=== PATIENT | male | born 1955 | race Caucasian/White ===

== ENCOUNTER 2020-03-19 10:01 | Outpatient (REF) | payer BC, SELFPAY ==
[2020-03-19 10:44] LABS: Mean Corpuscular HGB Conc 33.3 g/dl (31.0-36.0); Mean Corpuscular Hemoglobin 28.2 pg (27.0-33.0); Mean Corpuscular Volume 84.7 fL (80-98); Mean Platelet Volume 9.9 fL (9.4-12.4); Platelet Count 312 X10*3/uL (160-400); Red Blood Count 5.67 X10*6/uL (4.60-5.80); Red Cell Distribution Width 12.5 % (11.0-16.0); White Blood Count 5.4 X10*3/uL (4.8-10.8)
[2020-03-19 11:22] LABS: Alanine Aminotransferase 43 U/L (0-40); Albumin Level 4.1 g/dL (3.5-5.0); Alkaline Phosphatase 106 U/L (39-117); Anion Gap 11 (12-20); Aspartate Amino Transferase 36 U/L (5-37); Bilirubin Direct 0.6 mg/dL (0.0-0.5); Bilirubin Total 1.6 mg/dL (0.0-1.0); Blood Urea Nitrogen 16 mg/dL (9-16); Calcium 8.8 mg/dL (8.4-10.2); Carbon Dioxide 30 mmol/L (22-29); Chloride 103 mmol/L (96-108); Cholesterol 120 mg/dL; Estimated Glomerular Filt Rate > 60; Glucose Fasting 97 mg/dL (60-99); HDL Cholesterol 36 mg/dL; LDL Cholesterol Calculated 75 mg/dl; Potassium 4.9 mmol/l (3.3-5.1); Sodium 139 mmol/L (135-145); Total Protein 6.9 g/dL (6.5-8.0); Triglycerides 46 mg/dL
[2020-03-19 11:45] LABS: Prostate Specific Antigen 0.88 ng/mL (<0.05-4.0)
== END 2020-03-19 10:02 | disposition home or self-care (01) ==
LOC: HO.LAB 10:01
DX: I48.91 Unspecified atrial fibrillation (principal); E78.5 Hyperlipidemia, unspecified; N40.0 Benign prostatic hyperplasia without lower urinary tract symptoms
CPT/HCPCS: 36415; 80053; 80061; 80076; 82248; 84153; 85027

== ENCOUNTER 2020-06-21 10:15 | Outpatient (REF) | payer BC, SELFPAY ==
--- NOTE | ~2020-06-21 | US_ITS ---
EXAMINATION: US ABDOMEN COMPLETE CLINICAL INFORMATION: Abnormal results of liver function studies. COMPARISON: None TECHNIQUE: Real-time imaging of the abdominal viscera. FINDINGS: PANCREAS: The pancreas is normal in size and contour and echogenicity. There is no pancreatic ductal distention or retroperitoneal effusion. ABDOMINAL AORTA: The proximal, mid, and distal segments are normal in caliber. INFERIOR VENA CAVA: Visualized portions are normal. LIVER: Normal. The liver is normal in size. The liver contour is normal. Parenchymal echogenicity is normal. No focal hepatic lesion. There is no intrahepatic biliary duct dilatation seen. GALLBLADDER: Normal. The gallbladder is physiologically distended without evidence of stones, sludge, polyps, wall thickening or pericholecystic fluid. COMMON BILE DUCT: Normal in caliber measuring 0.3 cm in diameter. RIGHT KIDNEY: No hydronephrosis or renal calculi. The kidney measures 11.4 cm in maximum dimension. There is an upper pole cyst measuring 1.9 x 1.5 x 1.9 cm. LEFT KIDNEY: No hydronephrosis or renal calculi. The kidney measures 13.0 cm in maximum dimension. There is an interpolar cyst exophytic measuring 2.6 x 1.9 x 2.1 cm and smaller interpolar cyst 1.4 x 1.2 x 1.3 cm. SPLEEN: Normal. The spleen measures 8.7 cm in maximum dimension. FREE FLUID: None. US/US abdomen complete IMPRESSION: 1. Liver normal in size and echogenicity. 2. No cholelithiasis or ductal dilatation. Unremarkable pancreas. 3. Bilateral renal cysts. No hydronephrosis or calculi.
== END 2020-06-21 10:16 | disposition home or self-care (01) ==
LOC: HO.US 10:15
PROVIDERS: Visit Provider Internal Medicine
DX: R94.5 Abnormal results of liver function studies (principal)
CPT/HCPCS: 76700

== ENCOUNTER 2020-08-26 10:55 | Outpatient (REF) | payer BC, SELFPAY ==
[2020-08-26 12:38] LABS: Alanine Aminotransferase 41 U/L (0-40); Albumin Level 4.2 g/dL (3.5-5.0); Alkaline Phosphatase 98 U/L (39-117); Anion Gap 13 (12-20); Aspartate Amino Transferase 32 U/L (5-37); Bilirubin Total 1.5 mg/dL (0.0-1.0); Blood Urea Nitrogen 16 mg/dL (9-16); Calcium 9.5 mg/dL (8.4-10.2); Carbon Dioxide 26 mmol/L (22-29); Chloride 105 mmol/L (96-108); Estimated Glomerular Filt Rate > 60; Glucose Random 90 mg/dL (60-115); Potassium 4.7 mmol/L (3.3-5.1); Sodium 139 mmol/L (135-145); Total Protein 7.4 g/dL (6.5-8.0)
[2020-08-29 08:13] LABS: HBsAGNum1 0.25 S/CO (0.00-0.99); Hepatitis B Surface Antigen Negative (Negative); ~HepC Num1 0.18 S/CO (0.00-0.79); ~Hepatitis C Antibody Nonreactive (Nonreactive)
[2020-08-29 08:48] LABS: HBc Num1 0.09 S/CO (0.00-0.79); Hepatitis B Core Antibody Nonreactive (Nonreactive); ~Hepatitis B Surface Antibody NONREACTIVE (Nonreactive)
== END 2020-08-26 10:56 | disposition home or self-care (01) ==
LOC: HO.LAB 10:55
PROVIDERS: PCP Internal Medicine; Visit Provider Internal Medicine
DX: R94.5 Abnormal results of liver function studies (principal)
CPT/HCPCS: 36415; 80053; 86704; 86706; 86803; 87340

== ENCOUNTER 2021-04-21 09:55 | Outpatient (REF) | payer MEDICARE, OTHER, SELFPAY ==
--- NOTE | ~2021-04-21 | FL_ITS ---
EXAMINATION: FL UPPER GI AIR-CONTRAST STUDY AND BARIUM SWALLOW CLINICAL INFORMATION: Dysphagia. COMPARISON: None TECHNIQUE: Routine upper GI air-contrast study was performed with thick barium and effervescent granules in upright and lying position. Also thick barium and a barium-coated tablet was administered in upright view as part of the barium swallow. FINDINGS: Following oral administration of thick barium, barium-coated turkey and barium-coated tablet, there is normal propagation of bolus from the oral cavity through the pharynx, esophagus into stomach without any evidence of narrowing, stricture or obstruction. There is no extrinsic compression. On oral administration of barium tablet, there is spontaneous flow of the tablet through the esophagus into stomach with no obstruction. Following oral administration of effervescent granules and thick barium, the course, caliber and peristalsis of the stomach and the duodenum are normal. The mucosal pattern of the stomach and the duodenum is normal. No gastric ulceration or erosion seen. There is no hiatal hernia or gastroesophageal reflux. FL/FL upper GI w air w Ba Swallow IMPRESSION: Unremarkable upper GI air-contrast study and barium swallow exam.
[2021-04-21 10:52] LABS: MANUAL DIFF FLAG NO
[2021-04-21 11:01] LABS: Basophils Percent Auto 0.6 % (0-2); Eosinophils Absolute Auto 0.2 X10*3/uL (0.0-0.4); Eosinophils Percent Auto 2.5 % (0-4); Hemoglobin 15.8 g/dl (14.0-18.0); Imm Gran Abs Auto 0.01 X10*3/uL (0.00-0.03); Imm Gran Pct Auto 0.2 % (0.0-0.4); Lymphocytes Absolute Auto 1.4 X10*3/uL (1.2-4.9); Lymphocytes Percent Auto 21.3 % (20-40); Mean Corpuscular HGB Conc 32.9 g/dl (31.0-36.0); Mean Corpuscular Hemoglobin 27.8 pg (27.0-33.0); Mean Corpuscular Volume 84.5 fL (80.0-98.0); Mean Platelet Volume 9.5 fL (9.4-12.4); Monocytes Absolute Auto 0.8 X10*3/uL (0.1-1.2); Monocytes Percent Auto 11.8 % (2-11); Neutrophils Percent Auto 63.6 % (45-73); Platelet Count 308 X10*3/uL (160-400); Red Blood Count 5.68 X10*6/uL (4.60-5.80); Red Cell Distribution Width 12.7 % (11.0-16.0); White Blood Count 6.4 X10*3/uL (4.8-10.8)
[2021-04-21 11:33] LABS: Alanine Aminotransferase 30 U/L (0-40); Albumin Level 4.2 g/dL (3.5-5.0); Alkaline Phosphatase 103 U/L (39-117); Anion Gap 10 (12-20); Aspartate Amino Transferase 27 U/L (5-37); Blood Urea Nitrogen 12 mg/dL (9-16); Calcium 9.6 mg/dL (8.4-10.2); Carbon Dioxide 29 mmol/L (22-29); Chloride 105 mmol/L (96-108); Cholesterol 144 mg/dL; Estimated Glomerular Filt Rate > 60; Glucose Random 106 mg/dL (60-115); HDL Cholesterol 46 mg/dL; LDL Cholesterol Calculated 87 mg/dl; Potassium 4.4 mmol/L (3.3-5.1); Sodium 140 mmol/L (135-145); Total Protein 7.4 g/dL (6.5-8.0); Triglycerides 56 mg/dL
[2021-04-21 11:41] LABS: B Type Natriuretic Peptide 24 pg/mL (<100)
[2021-04-21 11:58] LABS: Free T4 (Free Thyroxine) 1.06 ng/dL (0.71-1.85); Prostate Specific Antigen Scr 1.44 ng/mL (<0.05-4.0); Thyroid Stimulating Hormone 2.34 uIU/mL (0.32-4.0)
[2021-04-21 12:05] LABS: Folate 14.2 ng/mL (> or = 4.0); Vitamin B12 767 pg/mL (200-900)
== END 2021-04-21 09:56 | disposition home or self-care (01) ==
LOC: HO.XRAY 09:55
PROVIDERS: PCP Internal Medicine; Visit Provider Internal Medicine
DX: Z12.5 Encounter for screening for malignant neoplasm of prostate (principal); R13.10 Dysphagia, unspecified; E78.00 Pure hypercholesterolemia, unspecified
CPT/HCPCS: 36415; 74246; 80053; 80061; 82607; 82746; 83880; 84153; 84439; 84443; 85025

== ENCOUNTER 2021-09-14 09:01 | Outpatient (REF) | payer MEDICARE, OTHER, SELFPAY ==
--- NOTE | ~2021-09-14 | CT_ITS ---
EXAMINATION: CT HEAD WITHOUT CONTRAST CLINICAL INFORMATION: 66-year-old with other signs and symptoms involving cognitive function. COMPARISON: None TECHNIQUE: Contiguous axial imaging was performed from the skull base to vertex without intravenous administration of contrast. This CT examination was performed using dose optimization techniques as appropriate, variously including the following: *Automated exposure control *Adjustment of mA and/or kV according to patient size (this includes techniques or standardized protocols for targeted exams where dose is matched to indication/reason for exam; i.e. extremities or head) *Use of iterative reconstruction technique DLP: 815 mGy-cm FINDINGS: BRAIN VOLUME: Within normal range within the limitations of a qualitative assessment. STRUCTURAL: No malformations. BRAIN AND MENINGES: Hyman-white matter differentiation is well maintained. The brain is normal in morphology and attenuation. There is no evidence for hemorrhage, extra-axial fluid collection, space-occupying process, mass effect, acute infarct or space-occupying process. VENTRICLES AND SUBARACHNOID SPACES: The ventricular system and subarachnoid spaces are within normal limits without hydrocephalus. ORBITAL STRUCTURES: Grossly unremarkable within the limitations of the study. OSSEOUS STRUCTURES, SINUSES/MASTOIDS, EXTRACRANIAL SOFT TISSUES: The bony structures are intact. Mastoids and middle ear cavities are unopacified. Large retention cysts are noted in the right maxillary sinus, partially opacifying the sinus. Otherwise the remainder of the visualized paranasal sinuses is clear. Bilateral carotid calcifications are noted. Visualized extracranial soft tissue structures appear grossly unremarkable within the limitations of the study. CT/CT head/brain wo con IMPRESSION: 1. Normal noncontrast CT of the brain. 2. Large retention cysts in the right maxillary sinus.
== END 2021-09-14 09:02 | disposition home or self-care (01) ==
LOC: HO.CT 09:01
PROVIDERS: PCP Internal Medicine; Visit Provider Internal Medicine
DX: R41.89 Other symptoms and signs involving cognitive functions and awareness (principal)
CPT/HCPCS: 70450

== ENCOUNTER 2021-10-05 15:07 | Outpatient (REF) | payer MEDICARE, OTHER, SELFPAY ==
--- NOTE | ~2021-10-05 | US_ITS ---
EXAMINATION: US EXTRACRANIAL CAROTID DUPLEX, BILATERAL CLINICAL INFORMATION: Transient ischemic attack COMPARISON: 12/23/2018 TECHNIQUE: Real-time ultrasound and Doppler techniques (integrating B-mode 2-D vascular images, Doppler spectral analysis and color-flow Doppler imaging) were utilized to interrogate the extracranial carotid arteries, the vertebral arteries and proximal subclavian arteries bilaterally. The degree of stenosis is determined by criteria similar to NASCET. FINDINGS: Right Side: 1. There is minimal atherosclerotic plaque seen in the bifurcation/proximal ICA region. 2. The common carotid artery PSV proximally is 95.1 cm/s and distally 90.1 cm/s. 3. The proximal internal carotid artery velocities are 94.4 cm/s systolic and 21.1 cm/s diastolic. 4. The proximal external carotid artery PSV is 90.7 cm/s. 5. The vertebral artery shows antegrade flow. 6. The subclavian artery waveforms are normal. Left Side: 1. There is none atherosclerotic plaque seen in the bifurcation/proximal ICA region. 2. The common carotid artery PSV proximally is 107 cm/s and distally 82.0 cm/s. 3. The proximal internal carotid artery velocities are 83.1 cm/s systolic and 25.1 cm/s diastolic. 4. The proximal external carotid artery PSV is 104 cm/s. 5. The vertebral artery shows antegrade flow. 6. The subclavian artery waveforms are normal. US/US carotid duplex BI IMPRESSION: 1. RIGHT: Minimal, non-hemodynamically significant stenosis of the proximal right internal carotid artery corresponding to a 0-49% stenosis by velocity criteria. 2. LEFT: Normal left internal carotid artery without atherosclerotic plaque or hemodynamically significant stenosis. 3. There is no change in the category severity of disease when compared to the previous study dated 12/23/2018.
== END 2021-10-05 15:08 | disposition home or self-care (01) ==
LOC: HO.US 15:07
PROVIDERS: Visit Provider Internal Medicine
DX: G45.9 Transient cerebral ischemic attack, unspecified (principal)
CPT/HCPCS: 93880

== ENCOUNTER → 2021-11-30 12:55 | Outpatient (BNVA) | payer MEDICARE, OTHER, SELFPAY | PROVIDERS: PCP Internal Medicine; Referring Provider Internal Medicine; Visit Provider Internal Medicine Cardiovascular Disease | DX: I48.0 Paroxysmal atrial fibrillation (principal) | CPT/HCPCS: 93005; 99202 ==

== ENCOUNTER → 2021-12-04 14:57 | Outpatient (REF) | payer MEDICARE, OTHER, SELFPAY ==
--- NOTE | 2021-12-04 15:02 | CA_ITS ---
Transthoracic Echocardiogram Patient (Last, First, Middle): Tommy Cooper, Gender: Male Date of : 1955 Age: 66 Procedure Date: 12/04/2021 Procedure Type: Transthoracic Echocardiogram Location: OP Height: 180.34 cm Weight: 99.79 kg BSA: 2.20 m2 Heart Rate: 76 bpm BP: 120 / 74 mmHg Enrollment Specialist: KOFFI Referring MD: Faisal Brown MD Director Of Income Tax: Faisal Brown MD Symptoms: I48.0 - Paroxysmal atrial fibrillation Study Quality: Adequate with contrast ECG Rhythm: Sinus Conclusions: - 1. Normal LV systolic function with impaired relaxation filling pattern 2. Normal cardiac valvular Doppler 3. No gross pericardial effusion Findings Procedure Information Contrast agent, definity, is being given per protocol without apparent complications. Left Ventricle Normal left ventricular size, thickness, and systolic function. The visually estimated ejection fraction is between 65-70%. Spectral Doppler is indicative of an impaired relaxation filling pattern. E/E prime ratio is between 8 and 15 consistent with indeterminate filling pressures. Right Ventricle Normal right ventricular cavity size and systolic function. Atria The left atrium is normal in size. Interatrial shunt cannot be excluded. The right atrium is normal in size. Aortic Valve Normal aortic valve structure and function. There is no aortic valve stenosis. There is no aortic valve regurgitation. Mitral Valve Normal mitral valve structure and function. There is trace mitral valve regurgitation. There is no mitral valve stenosis. Pulmonic Valve The pulmonic valve was not well visualized. Tricuspid Valve Likely normal tricuspid valve structure and function. Tricuspid regurgitation envelope is inadequate for calculation of right ventricular systolic pressure. Great Vessels All visible segments of the aorta are normal in size. The pulmonary artery was not well visualized. Venous The inferior vena cava is normal in size and collapses greater than 50% with inspiration. Pericardium/Pleural There is no evidence of pericardial effusion. Prior Study Comparison No significant change compared to prior study dated: 11/01/2017. Measurements 2D Linear Measurements IVSd: 0.93 0.6-0.9/0.6-1.0 cm LVIDd: 5.26 3.9-5.3/4.2-5.9 cm LVIDd Index: 2.39 2.4-3.2/2.2-3.1 cm/m2 LVIDs: 3.87 2.0-3.6 cm LVPWd: 0.58 0.7-1.1 cm LA Diam: 4.00 2.7-3.8/3.0-4.0 cm LAIDs Index: 1.82 1.5-2.3 cm/m2 LV Mass: 170.06 67-162/88-224 g LV Mass Index: 77.30 43-95/49-115 g/m2 LVOT Diam: 2.20 3.0+(-)1.3 cm 2D Systolic Function EF 4C: 65.80 >55% EF 2C: 74.60 >55% EF BiP: 69.70 >55% Mitral Valve MV Pk E: 0.69 MV PK A: 0.64 MV Decel Time: 221.00 E/A: 1.10 E'Lateral: 11.10 E'Medial: 7.72 E/E' Med: 9.00 E/E' Lat: 6.30 PHT: 65.00 MVA PHT: 3.38 Decel [place]: 3.14 Aortic Valve AoV Pk Andrew: 1.48 AoV Mn Andrew: 1.05 AoV VTI: 0.27 AoV Pk Grad: 9.00 Aov Mn Grad: 5.00 BINTA Cont.VTI: 2.94 LVOT LVOT Pk Andrew: 1.01 LVOT Mn Andrew: 0.76 LVOT VTI: 0.21 LVOT Pk Grad: 4.00 LVOT Mn Grad: 3.00 LVOT Diam: 2.20 LVOT Area: 3.80 Diastolic Function MV Pk E: 0.69 MV Pk A: 0.64 E/A: 1.10 E'Medial: 7.72 E/E' Med: 9.00 E' Laterial: 11.10 E/E' Lat: 6.30 Right Ventricle TAPSE (mm): 16.60 TVS' Andrew: 11.10 Great Vessels Aorta Sinus of Valsalva: 3.30 2.0-3.5 cm Ao Asc: 3.70 2.1-3.4 cm Pulmonary Valve PV Pk Andrew: 1.34 Peak PV Grad: 7.00 Updated in Other Vendor System with Status of Final Faisal Brown MD electronically signed on 12/05/2021 9:03:03 AM with status of Final
== END ==
LOC: HO.CARD 14:57
PROVIDERS: PCP Internal Medicine; Visit Provider Internal Medicine Cardiovascular Disease
DX: I48.0 Paroxysmal atrial fibrillation (principal)
CPT/HCPCS: 93306; Q9957

== ENCOUNTER 2022-03-24 09:20 | Outpatient (REF) | payer MEDICARE, OTHER, SELFPAY ==
[2022-03-24 09:31] LABS: MANUAL DIFF FLAG NO
[2022-03-24 09:50] LABS: Basophils Absolute Auto 0.1 X10*3/uL (0.0-0.2); Basophils Percent Auto 0.7 % (0-2); Eosinophils Absolute Auto 0.2 X10*3/uL (0.0-0.4); Eosinophils Percent Auto 2.9 % (0-4); Hematocrit 47.8 % (42.0-52.0); Hemoglobin 15.4 g/dl (14.0-18.0); Imm Gran Abs Auto 0.02 X10*3/uL (0.00-0.03); Imm Gran Pct Auto 0.3 % (0.0-0.4); Lymphocytes Absolute Auto 1.6 X10*3/uL (1.2-4.9); Lymphocytes Percent Auto 22.4 % (20-40); Mean Corpuscular HGB Conc 32.2 g/dl (31.0-36.0); Mean Corpuscular Hemoglobin 27.5 pg (27.0-33.0); Mean Corpuscular Volume 85.2 fL (80.0-98.0); Mean Platelet Volume 9.6 fL (9.4-12.4); Monocytes Absolute Auto 0.8 X10*3/uL (0.1-1.2); Monocytes Percent Auto 11.4 % (2-11); Neutrophils Absolute Auto 4.4 x10*3/uL (2.0-8.3); Neutrophils Percent Auto 62.3 % (45-73); Platelet Count 348 X10*3/uL (160-400); Red Blood Count 5.61 X10*6/uL (4.60-5.80); Red Cell Distribution Width 12.7 % (11.0-16.0)
[2022-03-24 10:42] LABS: Alanine Aminotransferase 31 U/L (0-40); Albumin Level 4.1 g/dL (3.5-5.0); Alkaline Phosphatase 101 U/L (39-117); Anion Gap 14 (12-20); Aspartate Amino Transferase 26 U/L (5-37); Bilirubin Total 0.7 mg/dL (0.0-1.0); Blood Urea Nitrogen 18 mg/dL (9-16); Calcium 9.1 mg/dL (8.4-10.2); Carbon Dioxide 27 mmol/L (22-29); Chloride 106 mmol/L (96-108); Cholesterol 129 mg/dL; Estimated Glomerular Filt Rate > 60; Glucose Random 102 mg/dL (60-115); HDL Cholesterol 37 mg/dL; LDL Cholesterol Calculated 82 mg/dl; Potassium 4.9 mmol/L (3.3-5.1); Sodium 142 mmol/L (135-145); Total Protein 7.2 g/dL (6.5-8.0); Triglycerides 51 mg/dL
[2022-03-24 10:51] LABS: B Type Natriuretic Peptide 22 pg/mL (<100)
[2022-03-24 11:06] LABS: Free T4 (Free Thyroxine) 1.07 ng/dL (0.71-1.85); Prostate Specific Antigen Scr 1.46 ng/mL (<0.05-4.0); Thyroid Stimulating Hormone 1.92 uIU/mL (0.32-4.0)
[2022-03-24 12:29] LABS: Folate 9.1 ng/mL (> or = 4.0)
[2022-03-24 12:31] LABS: Vitamin B12 715 pg/mL (200-900)
== END 2022-03-24 09:21 | disposition home or self-care (01) ==
LOC: HO.LAB 09:20
PROVIDERS: PCP Internal Medicine; Visit Provider Internal Medicine
DX: Z12.5 Encounter for screening for malignant neoplasm of prostate (principal); I48.0 Paroxysmal atrial fibrillation; E78.00 Pure hypercholesterolemia, unspecified
CPT/HCPCS: 36415; 80053; 80061; 82607; 82746; 83880; 84153; 84439; 84443; 85025

== ENCOUNTER 2022-08-11 09:10 | Outpatient (REF) | payer MEDICARE, OTHER, SELFPAY ==
[2022-08-11 10:10] LABS: Estimated Average Glucose 117 mg/dL; Hemoglobin A1c % 5.7 %
[2022-08-11 10:42] LABS: Alanine Aminotransferase 37 U/L (0-40); Alkaline Phosphatase 107 U/L (39-117); Anion Gap 12 (12-20); Aspartate Amino Transferase 32 U/L (5-37); Bilirubin Total 1.8 mg/dL (0.0-1.0); Blood Urea Nitrogen 12 mg/dL (9-16); Carbon Dioxide 25 mmol/L (22-29); Chloride 107 mmol/L (96-108); Cholesterol 117 mg/dL; Estimated Glomerular Filt Rate > 60; Glucose Random 98 mg/dL (60-115); HDL Cholesterol 34 mg/dL; LDL Cholesterol Calculated 74 mg/dl; Potassium 4.4 mmol/L (3.3-5.1); Sodium 140 mmol/L (135-145); Total Protein 6.9 g/dL (6.5-8.0); Triglycerides 45 mg/dL
== END 2022-08-11 09:11 | disposition home or self-care (01) ==
LOC: HO.LAB 09:10
PROVIDERS: PCP Internal Medicine; Visit Provider Internal Medicine
DX: R73.01 Impaired fasting glucose (principal); E78.00 Pure hypercholesterolemia, unspecified
CPT/HCPCS: 36415; 80053; 80061; 83036

== ENCOUNTER 2022-09-05 10:46 | Outpatient (REF) | payer MEDICARE, OTHER, SELFPAY ==
--- NOTE | ~2022-09-05 | US_ITS ---
EXAMINATION: US PELVIS LIMITED (BLADDER) CLINICAL INFORMATION: Frequency of micturition. COMPARISON: Ultrasound abdomen complete 06/21/2020. TECHNIQUE: Real-time imaging of the bladder. FINDINGS: BLADDER: Well distended and normal. Bilateral ureteral jets are demonstrated. Prevoid bladder volume is 493.1 mL. Postvoid bladder volume is 184.4 mL. US/US bladder IMPRESSION: 1. Significant postvoid residual bladder volume. Normal bilateral ureteral jets seen. 2. Prostate volume is 55.5 mL.
== END 2022-09-05 10:47 | disposition home or self-care (01) ==
LOC: HO.US 10:46
PROVIDERS: PCP Internal Medicine; Visit Provider Internal Medicine
DX: R35.0 Frequency of micturition (principal)
CPT/HCPCS: 76857

== ENCOUNTER → 2022-09-26 08:55 | Outpatient (BNVA) | payer MEDICARE, OTHER, SELFPAY | PROVIDERS: PCP Internal Medicine; Visit Provider Nurse Practitioner Family | DX: R35.0 Frequency of micturition (principal); R35.1 Nocturia | CPT/HCPCS: 51798; 99202 ==

== ENCOUNTER → 2022-11-12 10:19 | Outpatient (AMB) | payer MEDICARE, OTHER, SELFPAY ==
--- NOTE | 2022-11-12 10:22 | MHC.OFFVIS ---
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: No Accompanied by: Self / Same As Patient Allergies No Known Allergies Allergy (Mild, Verified 11/12/22 20:15) N/A Medication List - Last Reconciled 11/12/22 by Beatriz Escoto, [employer]- amlodipine 10 mg PO DAILY antiarthritic combination no.2 (glucosamine-chondroitin) mg PO ascorbate calcium (vitamin C) 1 g PO DAILY atorvastatin 20 mg PO BEDTIME 90 days flaxseed oil 5 mL miscellaneous ONCE hydrochlorothiazide 12.5 mg PO DAILY 90 days metoprolol tartrate 12.5 mg (1/2 x 25 mg) PO BID 90 days multivitamin 1 tab PO DAILY rivaroxaban (Xarelto) 20 mg PO DAILY tamsulosin (Flomax) 0.4 mg PO BEDTIME valsartan 160 mg PO DAILY HPI HPI Comments History of Present Illness Details Tommy is a plesant 67 year old male patinet of Dr. Manning. He has a PMH of TIA, paroxysmal AFib, cognitive impairment, hypercholesteremia and hypertension. He presents to the office today for follow-up. Of note, patient was seen approximately 8 weeks ago as a new patient for urinary issues at which time patient was to initiate Flomax as recommended by PCP. In discussion with the patient today he reports noting no improvement in urinary symptoms on 0.4 mg of Flomax daily. Discussed trial of terazosin verses low-dose Cialis verses alfuzosin. Patient reports he does not feel symptoms are bothersome enough to want to take a medication at this time. He also reports feeling low energy while on flomax. Patient with previous bladder ultrasound which demonstrated the bladder is well distended and normal. Bilateral ureteral jets are demonstrated. Prevoid bladder volume is 493.1 mL. Postvoid bladder volume is 184.4 mL. Prostate volume is 55.5 mL. In review of patient's chart it appears PSA from 03/27--1.5. In office urinalysis results reviewed with the patient today. PVR 33 mL's. Patient otherwise denies urinary urgency, incontinence, hematuria, dysuria, foul smelling urine, flank pain, fever, and or chills. DISHA offered however deferred. [facility] Medical History Hypercholesterolemia Hypertension Paroxysmal atrial fibrillation Surgical History Burn of leg H/O thumb surgery History of ankle surgery History of shoulder surgery History of tonsillectomy Family History Mother No problems noted. Father No problems noted. Social History Housing: House Alcohol intake: current Patient Tobacco Use Status: Never used Tobacco e-Cigarette/Vaping Use: Never Used Second Hand Smoke Exposure: No Current occupational status: retired Cognitive needs: No Hearing needs: No Vision needs: Yes Review of Systems Const Reports as per HPI Eyes Reports no additional complaints ENT Reports no additional complaints Card Reports as per HPI Resp Reports no additional complaints GI Reports no additional complaints Reports as per HPI Musc Reports no additional complaints Neuro Reports as per HPI Psych Reports no additional complaints Endo Reports no additional complaints Dima/Lymph Reports lymphadenopathy Aller/Immun Reports no additional complaints Physical Exam Const General: cooperative, healthy appearing, comfortable, no acute distress, well developed, alert and awake Orientation/consciousness: patient oriented x3 HEENT Head: Yes normal to inspection, Yes normocephalic and Yes atraumatic Ears: hearing grossly normal bilaterally Eyes General: appearance normal, both eyes and all related structures Neck Neck: Yes normal visual inspection and Yes trachea midline Chest Chest palpation & inspection: normal inspection of the chest Resp Effort & Inspection: normal respiratory effort and able to speak in complete sentences Cardio Rate: regular rate GI Inspection: Yes normal to inspection General: Yes no CVA tenderness Back/Spine/Pelvis Back: no CVA tenderness Skin General skin exam: no rashes or lesions noted Neuro General: patient oriented x3 Extrem General: Yes normal to inspection Psych Appearance: grossly normal and well kempt Mental Status: mental status grossly normal Speech and movement: Normal speech and movement present and Clear speech present Affect: normal affect Attitude: cooperative Thought process: Normal thought process present Thought content: Normal thought content present Insight: Good insight present (Psych) Judgement: Good judgement present (Psych) Office Procedures Post Void Residual Post Residual Void Post Void Residual (PVR): 33 [id number] Void Residual by ultrasound Results AMB Urinalysis, Automated UA Leukoctes 0 Sammy/uL Last Edit by Jaswinder Llamas on 11/12/22 10:26 UA Nitrite Negative Last Edit by Jaswinder Llamas on 11/12/22 10:26 UA Urobilinogen 0.2 mg/dL Last Edit by Jaswinder Llamas on 11/12/22 10:26 UA Protein 0 mg/dL Last Edit by Jaswinder Llamas on 11/12/22 10:26 UA pH 5.5 Last Edit by Wisherypriya Llamas on 11/12/22 10:26 UA Blood 10 Dickson/uL Last Edit by [email or web address] on 11/12/22 10:26 UA Specific Magnolia 1.025 Last Edit by Wisherypriya Llamas on 11/12/22 10:26 UA Ketone Negative Last Edit by Jaswinder Llamas on 11/12/22 10:26 UA Bilirubin 0 mg/dL Last Edit by Wisherypriya Llamas on 11/12/22 10:26 UA Glucose 0 mg/dL Last Edit by Wisherypriya Llamas on 11/12/22 10:26 Results Reviewed Results Reviewed: Laboratory Last Values Urine pH (Auto) 5.5 11/12/22 10:24 Specific Magnolia (Auto) 1.025 11/12/22 10:24 Urine Protein (Auto) 0 mg/dL 11/12/22 10:24 Glucose (UA)(Auto) 0 mg/dL 11/12/22 10:24 Urine Ketones (Auto) Negative 11/12/22 10:24 Urine Blood (Auto) 10 Dickson/uL 11/12/22 10:24 Urine Nitrite (Auto) Negative 11/12/22 10:24 Urine Bilirubin (Auto) 0 mg/dL 11/12/22 10:24 Urine Urobilinogen (Auto) 0.2 mg/dL 11/12/22 10:24 Leukocyte Esterase (Auto) 0 Sammy/uL 11/12/22 10:24 Assessment & Plan Assessment & Plan (1) Frequency of micturition: Code(s): R35.0 - Frequency of micturition (2) Nocturia: Code(s): R35.1 - Nocturia Plan In office urinalysis results reviewed with the patient today. PVR 33 mL. DISHA offered however deferred Stop Flomax as patient reports no significant improvement in urinary symptoms. Discussed at length further workup with in office cystoscopy versus trial of alfuzosin verses terazosin verses low-dose Cialis. Patient reports urinary symptoms are not bothersome at this time. Follow-up in 6 weeks with PVR; if not sooner with any questions, concerns, and or issues Orders: Orders AMB Urinalysis Automated Today Z13.9 - Encounter for screening, unspecified AMB Post Void Residual by ultrasound Today R35.0 - Frequency of micturition Patient Instructions: The patient had an opportunity to ask questions regarding the treatment plan. All questions were answered. Physical exam, labs, and imaging were discussed and reviewed in detail. As well as risks, benefits, and discussion of treatment choices. No major barriers to understanding were identified. The patient expressed understanding and agreement with the above treatment plan. The patient was made aware they should contact our office by phone for worsening of their current condition, the appearance of new symptoms, or with any questions or concerns. Compliance is encouraged with any medications and follow up testing that is ordered. It is a privilege to be allowed the opportunity to participate in? your urological care.? Again, if you have any questions or concerns If you have any questions or concerns please do not hesitate to contact me. The office is [phone]. This note is constructed using voice recognition software. While every effort has been made to ensure accuracy automotive parts advisor errors may have been included. Yours sincerely, CIRO Granados Coding Level of Care Code Est Pt Level 3 (63450) Diagnoses Frequency of micturition R35.0 Nocturia R35.1 CPT Codes Post Residual Void - PVR CPT Code: 81420-Vlbv Void Residual by ultrasound ([id number])
== END ==
PROVIDERS: PCP Internal Medicine; Visit Provider Nurse Practitioner Family
DX: R35.0 Frequency of micturition (principal); R35.1 Nocturia
CPT/HCPCS: 99213

== ENCOUNTER → 2022-11-12 10:19 | Outpatient (BNVA) | payer MEDICARE, OTHER, SELFPAY | PROVIDERS: PCP Internal Medicine; Visit Provider Nurse Practitioner Family | DX: R35.0 Frequency of micturition (principal); R35.1 Nocturia | CPT/HCPCS: 51798; 99212 ==

== ENCOUNTER 2022-12-03 09:09 | Outpatient (AMB) | payer MEDICARE, OTHER, SELFPAY ==
[2022-12-03 09:18] VITALS: BP 116/74; PULSE 70; BMI 28.6
--- NOTE | 2022-12-03 09:18 | A.OFFVIS_ITS ---
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 Allergies No Known Allergies Allergy (Mild, Verified 11/12/22 20:15) N/A Medication List - Last Reconciled 12/03/22 by Faisal Brown MD amlodipine 10 mg PO DAILY antiarthritic combination no.2 (glucosamine-chondroitin) mg PO ascorbate calcium (vitamin C) 1 g PO DAILY atorvastatin 20 mg PO BEDTIME 90 days flaxseed oil 5 mL miscellaneous ONCE hydrochlorothiazide 12.5 mg PO DAILY 90 days metoprolol tartrate 12.5 mg (1/2 x 25 mg) PO BID 90 days multivitamin 1 tab PO DAILY rivaroxaban (Xarelto) 20 mg PO DAILY valsartan 160 mg PO DAILY HPI HPI Comments 2 History of Present Illness Details Tommy comes for follow-up. He has been doing well from cardiac perspective. Occasionally when he is on exercise bike he feels some skipped heartbeats. No prolonged palpitations irregular heartbeat. Also gets lightheadedness when he is standing for long period time. No syncopal episodes. Denies any atrial fibrillation episode. Takes all his medications. Denies any worsening exertional chest pain or shortness of breath. No bleeding issues or neurologic events. [facility] Medical History Hypercholesterolemia Hypertension Paroxysmal atrial fibrillation Surgical History Burn of leg H/O thumb surgery History of ankle surgery History of shoulder surgery History of tonsillectomy Family History Mother No problems noted. Father No problems noted. Social History Housing: House Alcohol intake: current Patient Tobacco Use Status: Never used Tobacco e-Cigarette/Vaping Use: Never Used Second Hand Smoke Exposure: No Current occupational status: retired Cognitive needs: No Hearing needs: No Vision needs: Yes Review of Systems Const Denies chills, Denies fatigue, Denies fever(s), Denies frequent falls, Denies weakness, Denies weight gain and Denies weight loss ENT Denies dizziness Card Denies chest pain, Denies leg edema, Denies lightheadedness, Denies palpitations, Denies dyspnea, Denies dyspnea on exertion, Denies orthopnea and Denies other (loss of consciousness) Resp Denies cough, Denies dyspnea and Denies dyspnea on exertion GI Denies hematochezia and Denies change in stool character Musc Denies abnormal gait, Denies muscle weakness, Denies numbness, Denies radiating pain into limb and Denies tingling Neuro Denies abnormal gait, Denies dizziness, Denies frequent falls, Denies numbness, Denies tingling and Denies weakness Endo Denies fatigue and Denies palpitations Physical Exam Vital Signs: Last Vital Signs Pulse 70 12/03/22 09:18 BP 116/74 12/03/22 09:18 BMI result Body Mass Index 28.6 Const General: cooperative, comfortable, no acute distress, well developed, alert, awake and Physically active Nutritional Appearance: well nourished and overweight Orientation/consciousness: patient oriented x3 Limitations: no limitations HEENT Head: Yes normocephalic and Yes atraumatic Neck Neck: Yes trachea midline, Yes supple and Yes no JVD Resp Effort & Inspection: normal respiratory effort Auscultation: clear to auscultation bilaterally Cardio Jugular venous distension: no JVD Palpation: normal PMI Rate: regular rate Rhythm: regular rhythm Heart sounds: S1 normal heart sound present, S2 normal heart sound present, no click, no gallops, no murmurs and no rubs GI Auscultation: normal bowel sounds Skin General skin exam: no rashes or lesions noted Neuro General: patient oriented x3 and no focal motor deficits Extrem General: Yes no clubbing, cyanosis or edema Office Procedures EKG Details: EKG shows normal sinus rhythm with normal EKG [id number], Complete Assessment & Plan Assessment & Plan (1) Paroxysmal atrial fibrillation: Comment: Status post ablation February 2021 Code(s): I48.0 - Paroxysmal atrial fibrillation Plan: Paroxysmal atrial fibrillation has done very well with rhythm control approach. Status post ablation. Currently off all antiarrhythmic drug therapy. Occasional palpitation which probably represent PACs. Will continue monitor clinically. He is advised to call me with worsening symptoms. Continue aggressive control risk factors of hypertension. Continue maintain activity level as tolerated. Avoid stimulants. Will follow-up echocardiogram next year. Continue full oral anticoagulation, currently on Xarelto 20 mg daily. Semi annual renal function test should be pursued. (2) Hypertension: Code(s): I10 - Essential (primary) hypertension Qualifiers: Hypertension type: essential hypertension Qualified Code(s): I10 - Essential (primary) hypertension Plan: Hypertension which is currently well optimized advised to monitor blood pressure at home and especially when he has having symptoms of lightheadedness. Advised to avoid prolonged standing posture is. Also advised to increase fluid intake. Target goal blood pressure less than 130/84. Low-salt diet was discussed. Advised heart healthy lifestyle with regular physical activity. Will follow up in the clinic in 1 year's time, sooner p.r.n.. Thank you for allowing me to partake in his care Coding Level of Care Code Est Pt Level 4 (57462) Diagnoses Paroxysmal atrial fibrillation I48.0 Hypertension I10 Hypertension type: essential hypertension CPT Codes EKG - CPT: 09633-[id number], Complete ([id number])
== END 2022-12-03 09:43 | disposition home or self-care (01) ==
PROVIDERS: Visit Provider Internal Medicine Cardiovascular Disease
DX: I48.0 Paroxysmal atrial fibrillation (principal); I10 Essential (primary) hypertension
CPT/HCPCS: 93010; 99214

== ENCOUNTER → 2022-12-03 09:09 | Outpatient (BNVA) | payer MEDICARE, OTHER, SELFPAY | PROVIDERS: Visit Provider Internal Medicine Cardiovascular Disease | DX: I48.0 Paroxysmal atrial fibrillation (principal); I10 Essential (primary) hypertension | CPT/HCPCS: 93005; 99212 ==

== ENCOUNTER 2023-01-15 10:24 | Outpatient (AMB) | payer MEDICARE, OTHER, SELFPAY ==
--- NOTE | 2023-01-15 10:29 | A.OFFVIS_ITS ---
Intake Intake Visit Reasons: 2m/PVR Intake Note: Patient is present for follow up urinary frequency Urology Medications: D/C tamsulosin/currently not treating with any medications Blood Thinner: xarelto PVR: 11ml's Chief Cardiopulmonary Technologist Required: No Accompanied by: Self / Same As Patient Allergies No Known Allergies Allergy (Mild, Verified 01/20/23 18:02) N/A Medication List - Last Reconciled 01/20/23 by DELTA Granados- amlodipine 10 mg PO DAILY antiarthritic combination no.2 (glucosamine-chondroitin) mg PO ascorbate calcium (vitamin C) 1 g PO DAILY atorvastatin 20 mg PO BEDTIME 90 days flaxseed oil 5 mL miscellaneous ONCE hydrochlorothiazide 12.5 mg PO DAILY 90 days metoprolol tartrate 12.5 mg (1/2 x 25 mg) PO BID 90 days multivitamin 1 tab PO DAILY rivaroxaban (Xarelto) 20 mg PO DAILY valsartan 160 mg PO DAILY HPI HPI Comments History of Present Illness Details Tommy is a plesant 67 year old male patinet of Dr. Manning. He has a PMH of TIA, paroxysmal AFib, cognitive impairment, hypercholesteremia and hypertension. He presents to the office today for follow-up. Of note, patient was seen approximately 2 months ago at which time flomax was discontinued as patient was reporting no improvement in lower urinary tract symptoms. At that time discussion of other urological medications such as terazosin verses low- dose Cialis verses alfuzosin. However, patient stated he felt urinary symptoms were not bothersome enough to want to take a medication. In office urinalysis results reviewed with the patient today. PVR 11 mL. PSA's are as follows: 04/25--1.4 03/27--1.5 Workup has included bladder ultrasound which demonstrated the bladder is well distended and normal. Bilateral ureteral jets are demonstrated. Prevoid bladder volume is 493.1 mL. Postvoid bladder volume is 184.4 mL. Prostate volume is 55.5 mL. Patient otherwise denies urinary urgency, incontinence, hematuria, dysuria, foul smelling urine, flank pain, fever, and or chills. PFSH Medical History Paroxysmal atrial fibrillation Hypercholesterolemia Hypertension Surgical History History of tonsillectomy Burn of leg History of ankle surgery H/O thumb surgery History of shoulder surgery Family History Mother No problems noted. Father No problems noted. Social History Housing: House Alcohol intake: current Patient Tobacco Use Status: Never used Tobacco e-Cigarette/Vaping Use: Never Used Second Hand Smoke Exposure: No Current occupational status: retired Cognitive needs: No Hearing needs: No Vision needs: Yes Review of Systems Const Reports as per HPI Eyes Reports no additional complaints ENT Reports no additional complaints Card Reports as per HPI Resp Reports no additional complaints GI Reports no additional complaints Reports as per HPI Musc Reports no additional complaints Neuro Reports as per HPI Psych Reports no additional complaints Endo Reports no additional complaints Dima/Lymph Reports lymphadenopathy Aller/Immun Reports no additional complaints Physical Exam Const General: cooperative, healthy appearing, comfortable, no acute distress, well developed, alert and awake Orientation/consciousness: patient oriented x3 HEENT Head: Yes normal to inspection, Yes normocephalic and Yes atraumatic Ears: hearing grossly normal bilaterally Eyes General: appearance normal, both eyes and all related structures Neck Neck: Yes normal visual inspection and Yes trachea midline Chest Chest palpation & inspection: normal inspection of the chest Resp Effort & Inspection: normal respiratory effort and able to speak in complete sentences Cardio Rate: regular rate GI Inspection: Yes normal to inspection General: Yes no CVA tenderness Back/Spine/Pelvis Back: no CVA tenderness Skin General skin exam: no rashes or lesions noted Neuro General: patient oriented x3 Extrem General: Yes normal to inspection Psych Appearance: grossly normal and well kempt Mental Status: mental status grossly normal Speech and movement: Normal speech and movement present and Clear speech present Affect: normal affect Attitude: cooperative Thought process: Normal thought process present Thought content: Normal thought content present Insight: Good insight present (Psych) Judgement: Good judgement present (Psych) Office Procedures Post Void Residual Post Residual Void Post Void Residual (PVR): 11 [id number] Void Residual by ultrasound Results AMB Urinalysis, Automated UA Leukoctes 0 Sammy/uL Last Edit by Jaswinder Llamas on 01/15/23 10:48 UA Nitrite Last Edit by Jaswinder Llamas on 01/15/23 10:48 UA Urobilinogen 0.2 mg/dL Last Edit by Jaswinder Lenzjayesh on 01/15/23 10:48 UA Protein 0 mg/dL Last Edit by Jaswinder Lenzjayesh on 01/15/23 10:48 UA pH 6.0 Last Edit by Jaswinder Lenzjayesh on 01/15/23 10:48 UA Blood 0 Dickson/uL Last Edit by Jaswinder Lenzjayesh on 01/15/23 10:48 UA Specific [place] 1.015 Last Edit by Jaswinder Lenzjayesh on 01/15/23 10:48 UA Ketone Negative Last Edit by Carlylepriya Yoannajayesh on 01/15/23 10:48 UA Bilirubin 0 mg/dL Last Edit by Carlylepriya Yoannajayesh on 01/15/23 10:48 UA Glucose 0 mg/dL Last Edit by Jaswinder Yoannajayesh on 01/15/23 10:48 Results Reviewed Results Reviewed: Laboratory Last Values Urine pH (Auto) 6.0 01/15/23 10:31 Specific [place] (Auto) 1.015 01/15/23 10:31 Urine Protein (Auto) 0 mg/dL 01/15/23 10:31 Glucose (UA)(Auto) 0 mg/dL 01/15/23 10:31 Urine Ketones (Auto) Negative 01/15/23 10:31 Urine Blood (Auto) 0 Dickson/uL 01/15/23 10:31 Urine Bilirubin (Auto) 0 mg/dL 01/15/23 10:31 Urine Urobilinogen (Auto) 0.2 mg/dL 01/15/23 10:31 Leukocyte Esterase (Auto) 0 Sammy/uL 01/15/23 10:31 Assessment & Plan Assessment & Plan (1) Frequency of micturition: Code(s): R35.0 - Frequency of micturition (2) Nocturia: Code(s): R35.1 - Nocturia Plan In office urinalysis results reviewed with the patient today. PVR 11 mL. DISHA offered however deferred Discussed at length further workup with in office cystoscopy versus trial of alfuzosin verses terazosin verses low-dose Cialis. Patient reports urinary symptoms are not bothersome at this time; would like to continue with surveillance monitoring. Will obtain PSA now and in one year prior to appointment. Follow-up in one year with PVR; if not sooner with any questions, concerns, and or issues Orders: Orders AMB Urinalysis Automated 01/15/23 Z13.9 - Encounter for screening, unspecified AMB Post Void Residual by ultrasound 01/15/23 R35.0 - Frequency of micturition Prostate Specific Antigen 01/15/23 N40.0 - Benign prostatic hyperplasia without lower urinary tract symptoms Prostate Specific Antigen 364 Days N40.0 - Benign prostatic hyperplasia without lower urinary tract symptoms Coding Level of Care Code Est Pt Level 3 (14201) Diagnoses Frequency of micturition R35.0 Nocturia R35.1 CPT Codes Post Residual Void - PVR CPT Code: 92208-Ptet Void Residual by ultrasound ([id number])
== END 2023-01-15 11:22 | disposition home or self-care (01) ==
PROVIDERS: PCP Internal Medicine; Visit Provider Nurse Practitioner Family
DX: R35.0 Frequency of micturition (principal); R35.1 Nocturia
CPT/HCPCS: 99213

== ENCOUNTER → 2023-01-15 10:24 | Outpatient (BNVA) | payer MEDICARE, OTHER, SELFPAY | PROVIDERS: PCP Internal Medicine; Visit Provider Nurse Practitioner Family | DX: R35.0 Frequency of micturition (principal); R35.1 Nocturia | CPT/HCPCS: 51798; 81003; 99212 ==

== ENCOUNTER 2023-01-22 09:49 | Outpatient (REF) | payer MEDICARE, OTHER, SELFPAY ==
[2023-01-22 12:11] LABS: Prostate Specific Antigen 1.66 ng/mL (<0.05-4.0)
== END 2023-01-22 09:50 | disposition home or self-care (01) ==
LOC: HO.LAB 09:49
PROVIDERS: PCP Internal Medicine; Visit Provider Nurse Practitioner Family
DX: N40.0 Benign prostatic hyperplasia without lower urinary tract symptoms (principal); Z12.5 Encounter for screening for malignant neoplasm of prostate
CPT/HCPCS: 36415; 84153

== ENCOUNTER 2023-04-02 10:05 | Outpatient (AMB) | payer MEDICARE, OTHER, SELFPAY ==
[2023-04-02 10:12] VITALS: BP 136/84; PULSE 74; O2SAT 98; BMI 28.1
--- NOTE | 2023-04-02 10:12 | MHC.PC.OV ---
Vital Signs 04/02/23 10:12 Height 5 ft 11 in Blood Pressure Location Lt brachial Position Sitting Pulse Source Pulse Oximeter Oxygen Delivery Method Room Air Intake Visit Reasons: SAWV Computer Typesetter Required: No Accompanied by: Self / Same As Patient Allergies No Known Allergies Allergy (Mild, Verified 04/02/23 10:12) N/A Tobacco use date assessed: 05/14/22 Fall risk assessment: No Falls in past year Last assessed Fall Risk: 04/02/23 Dental Screening Dental Screen Date: 04/02/23 Did you have a dental visit in the last 12 months?: Yes Did you have a dental problem in the last 6 months where you did not have access to dental care?: No Was dental information given to patient?: Patient has dentist [facility] Medical History Paroxysmal atrial fibrillation Hypercholesterolemia Hypertension Surgical History History of tonsillectomy Burn of leg History of ankle surgery H/O thumb surgery History of shoulder surgery Family History Mother No problems noted. Father No problems noted. Housing: House Alcohol intake: current Patient Tobacco Use Status: Never used Tobacco e-Cigarette/Vaping Use: Never Used Second Hand Smoke Exposure: No Current occupational status: retired Cognitive needs: No Hearing needs: No Vision needs: Yes Questionnaire Thrive Questionnaire Date Thrive assessed: 05/14/22 KURTIS-7 AMB Questionnaire KURTIS-7 Date KURTIS - 7 assessed: 05/14/22 Source: Developed by Drs. Elliot Maldonado, Rut Ramos, Shravan Angel and colleagues, with an educational naseem from [employer]. Physical exam (Primary Care) Tobacco/Smoking Status: Tobacco use Status Tobacco use date assessed 05/14/22 08/14/22 09:46 Patient Tobacco Use Status Never used Tobacco 08/14/22 09:46 e-Cigarette/Vaping Use Never Used 08/14/22 09:46 Thrive Assessment: Date of Thrive Assessment Date Thrive assessed 05/14/22 08/14/22 09:46 Coding
--- NOTE | 2023-04-02 10:13 | AM.OFFVISMDC ---
Intake Vital Signs 04/02/23 10:12 Height 5 ft 11 in Weight 201 lb 6 oz BMI 28.1 BP 136/84 Blood Pressure Location Lt brachial Position Sitting Pulse 74 Pulse Source Pulse Oximeter Pulse Oximetry (%) 98 Oxygen Delivery Method Room Air Intake Visit Reasons: SAWV Taxation Consultant Required: No Accompanied by: Self / Same As Patient Allergies No Known Allergies Allergy (Mild, Verified 04/02/23 10:48) N/A Medication List - Last Reconciled 04/02/23 by Talat Manning MD amlodipine 10 mg PO DAILY antiarthritic combination no.2 (glucosamine-chondroitin) mg PO ascorbate calcium (vitamin C) 1 g PO DAILY atorvastatin 20 mg PO BEDTIME 90 days flaxseed oil 5 mL miscellaneous ONCE hydrochlorothiazide 12.5 mg PO DAILY 90 days magnesium 200 mg PO DAILY melatonin 3 mg PO BEDTIME PRN metoprolol tartrate 12.5 mg (1/2 x 25 mg) PO BID 90 days multivitamin 1 tab PO DAILY rivaroxaban (Xarelto) 20 mg PO DAILY valsartan 160 mg PO DAILY HPI SAWV HPI Details 67-year-old overweight male with impaired glucose tolerance hypercholesterolemia atrial fibrillation hypertension atrial fibrillation coming in for annual well visit last seen in August 2022. Patient's colonoscopy is up-to-date 2017. Patient had frequency and was referred to Urology. He was prescribed tamsulosin but discontinued it due to no improvement. Patient feels problem not bad enough to require medication. But it ultrasound of the bladder showed urinary retention. With BPH. Patient follows up with Cardiology also paroxysmal atrial fibrillation status post ablation continue with anticoagulation twice a year renal function. bat exposure momentarily PFSH Medical History Paroxysmal atrial fibrillation Hypercholesterolemia Hypertension Surgical History History of tonsillectomy Burn of leg History of ankle surgery H/O thumb surgery History of shoulder surgery Family History Mother No problems noted. Father No problems noted. (Updated 04/02/23 @ 11:31 by Talat Manning MD) Housing: House Alcohol intake: current Patient Tobacco Use Status: Never used Tobacco e-Cigarette/Vaping Use: Never Used Second Hand Smoke Exposure: No Current occupational status: retired Cognitive needs: No Hearing needs: No Vision needs: Yes Questionnaire Medicare Wellness Checkup What [age] What gender do you identify with?: male During the past 4 weeks, how much have you been bothered by emotional problems such as feeling anxious, depressed, irritable, sad or downhearted, and blue?: not at all During the past 4 weeks, has your physical & emotional health limited your social activities with family, friends, neighbors, or groups?: not at all During the past 4 weeks, how much bodily pain have you generally had?: very mild pain During the past 4 weeks, was someone available to help you if you needed & wanted help?: yes, quite a bit During the past 4 weeks, what was the hardest physical activity you could do for at least 2 minutes?: heavy Can you get to places out of walking distance without help? (For eg., can you travel alone on buses, taxis or drive your car?): Yes Can you go shopping for groceries or clothes without someone's help?: Yes Can you prepare your own meals?: Yes Can you do your housework without help?: Yes Because of any health problems, do you need the help of another person with your personal care needs such as eating, bathing, dressing or getting around the house?: No Can you handle your own money without help?: Yes During the past 4 weeks, how would you rate your health in general?: very good During the past 4 weeks how have things been going for you?: pretty well Are you having difficulties driving your car?: no Do you always fasten your seat belt when you are in a car?: yes, usually During past 4 weeks, have you been bothered by the following: never: Falling or dizzy when standing up, Sexual problems?, Trouble eating well?, Teeth or denture problems?, Problems using the telephone? and Tiredness or fatigue? Have you fallen 2 or more times in the past year?: No Are you afraid of falling?: No Are you a smoker?: no During the past 4 weeks, how many drinks of wine, beer, or other alcoholic beverages did you have?: 2-5 drinks per week Do you exercise for about 20 minutes 3 or more times a week?: yes, most of the time Have you been given information to help with the following?: yes: Hazards in your house that might hurt you? and yes: Keeping track of your medications? How often do you have trouble taking medicines the way you have been told to take them?: I always take medicine as prescribed How confident are you that you can control & manage most of your health problems?: very confident What is your race?: White PHQ-9 Over the last 2 weeks, how often have you been bothered by any of the following problems? 1. Little interest or pleasure in doing things: not at all 2. Feeling down, depressed, or hopeless: not at all 3. Trouble falling or staying asleep, or sleeping too much: not at all 4. Feeling tired or having little energy: not at all 5. Poor appetite or overeating: not at all 6. Feeling bad about yourself - or that you are a failure or have let yourself or your family down: not at all 7. Trouble concentrating on things, such as reading the newspaper or watching television: not at all 8. Moving or speaking so slowly that other people could have noticed. Or the opposite - being so fidgety or restless that you have been moving around a lot more than usual: not at all 9. Thoughts that you would be better off or of hurting yourself in some way: not at all Total score: 0 Depression Screening Interpretation: Negative Depression Screening Done: Yes 32320 - PHQ-9 Billing: Yes Source: Developed by Drs. Elliot Maldonado, Rut Ramos, Shravan Angel and colleagues, with an educational naseem from [employer]. Review of Systems Const Denies poor appetite and Denies weakness Eyes Denies no additional complaints ENT Reports Normal hearing present, Denies dizziness, Denies nasal congestion, Denies tinnitus and Denies sore throat Card Denies chest pain, Denies syncope, Denies rapid heart rate and Denies dyspnea Resp Denies cough and Denies dyspnea GI Denies change in stool character, Reports constipation, Denies diarrhea, Denies nausea and Denies vomiting Denies dysuria and Denies urinary frequency Neuro Reports Normal hearing present, Denies confusion, Denies dizziness, Denies syncope and Denies weakness Psych Denies confusion Physical Exam Vital Signs: Last Vital Signs Pulse 74 04/02/23 10:12 BP 136/84 04/02/23 10:12 Pulse Ox 98 04/02/23 10:12 Oxygen Delivery Method Room Air 04/02/23 10:12 BMI result Body Mass Index 28.1 Const General: No confusion Orientation/consciousness: No confusion HEENT Head: Yes normocephalic Ears: external ears normal and TM's normal bilaterally Face and sinus: Yes normal facial exam Mouth: moist mucous membranes Throat: Yes tonsils normal Eyes Conjunctivae: conjunctivae normal Pupils: Equal, round and reactive pupils present and Pupil accommodation reflex normal Direct Ophthalmoscopy: normal light reflex Neck Neck: No lymphadenopathy Thyroid: Thyroid normal Chest Chest palpation & inspection: normal inspection of the chest Resp Effort & Inspection: normal respiratory effort and no audible wheezes Auscultation: clear to auscultation bilaterally, no crackles, no wheezes and lung sounds not diminished Cardio Rate: regular rate Rhythm: regular rhythm Peripheral pulses: radial pulses present and dorsalis pedis present GI Other: guaiac negative prostate mild enlargenment Palpation (GI): no masses Auscultation: normal bowel sounds and normoactive bowel sounds Rectal Exam - Male: Yes deferred Male General Exam: Yes normal external exam Skin General skin exam: no rashes or lesions noted Rashes: no rashes Neuro General: No confusion Cranial nerves: Yes Equal, round and reactive pupils present and Yes Normal hearing present Cognition (Neuro): normal cognition Gait exam (Neuro): Normal gait present Motor exam (neuro): 5/5 motor strength present throughout Deep tendon reflexes (DTR's): Right brachioradialis reflex intensity grade: 2+, Left brachioradialis reflex intensity grade: 2+, Right patellar reflex intensity grade: 2+ and Left patellar reflex intensity grade: 2+ Extrem General: No edema Assessment & Plan Assessment & Plan (1) Medicare annual wellness visit, subsequent: Code(s): Z00.00 - Encounter for general adult medical examination without abnormal findings (2) Hypertension: Code(s): I10 - Essential (primary) hypertension Qualifiers: Hypertension type: essential hypertension Qualified Code(s): I10 - Essential (primary) hypertension Plan: Continue with blood pressure medication. Decrease salt intake and exercise patient is taking amlodipine 10 mg once a day hydrochlorothiazide 12.5 mg once a day metoprolol 12.5 mg twice a day and valsartan 160 mg once a day (3) Hypercholesterolemia: Code(s): E78.00 - Pure hypercholesterolemia, unspecified Plan: Avoid fried foods, chicken skin, eggs, butter margarine, pastries and meat. Be it pork or beef they have a lot of cholesterol LDL goal of less than 100 and triglyceride of less than 150 patient is taking atorvastatin 20 mg once a day (4) Paroxysmal atrial fibrillation: Comment: Status post ablation February 2021 Code(s): I48.0 - Paroxysmal atrial fibrillation Plan: Continue with anticoagulation with Xarelto patient follows up with Cardiology (5) Impaired fasting blood sugar: Code(s): R73.01 - Impaired fasting glucose Plan: Decrease the amount of carbohydrate intake, pasta, bread, rice and potatoes are all sugar and that is aside from all the sweet stuff, remember that fruits are good but they are Sweet also. (6) BPH (benign prostatic hyperplasia): Code(s): N40.0 - Benign prostatic hyperplasia without lower urinary tract symptoms Plan: Patient has seen urology and patient declined medication for now (7) Stye: Comment: R eye Code(s): H00.019 - Hordeolum externum unspecified eye, unspecified eyelid Orders: Orders Complete Blood Count Auto Diff Today R73.01 - Impaired fasting glucose Lipid Panel Today E78.00 - Pure hypercholesterolemia, unspecified, R73.01 - Impaired fasting glucose Thyroid Stimulating Hormone Today R73.01 - Impaired fasting glucose Vitamin B12 and Folate Today R73.01 - Impaired fasting glucose Comprehensive Met. Panel Today R73.01 - Impaired fasting glucose Free T4 (Free Thyroxine) Today R73.01 - Impaired fasting glucose B Type Natriuretic Peptide Today R73.01 - Impaired fasting glucose Hemoglobin A1c Today R73.01 - Impaired fasting glucose Medications: New erythromycin 0.5 inches ophthalmic (eye) TID 3.5 grams 0RF H00.019 - Hordeolum externum unspecified eye, unspecified eyelid Refilled amlodipine 10 mg PO DAILY 90 tabs 2RF I10 - Essential (primary) hypertension valsartan 160 mg PO DAILY 90 tabs 2RF I10 - Essential (primary) hypertension atorvastatin 20 mg PO BEDTIME 90 days 90 tabs 3RF E78.00 - Pure hypercholesterolemia, unspecified hydrochlorothiazide 12.5 mg PO DAILY 90 days 90 tabs 3RF I10 - Essential (primary) hypertension metoprolol tartrate 12.5 mg (1/2 x 25 mg) PO BID 90 days 90 tabs 3RF I10 - Essential (primary) hypertension rivaroxaban (Xarelto) must administer with evening meal 20 mg PO DAILY 90 tabs 2RF I48.91 - Unspecified atrial fibrillation Quality Reporting (2019) Depression/Bipolar (159/160/161/177) PHQ-9: Total score: 0 Coding Level of Care Code Medicare Subsequent (G0439) Diagnoses Medicare annual wellness visit, subsequent Z00.00 Essential hypertension I10 Hypertension type: essential hypertension Hypercholesterolemia E78.00 Paroxysmal atrial fibrillation I48.0 Impaired fasting blood sugar R73.01 BPH (benign prostatic hyperplasia) N40.0 Stye H00.019
== END 2023-04-02 11:51 | disposition home or self-care (01) ==
PROVIDERS: Visit Provider Internal Medicine
DX: Z00.00 Encounter for general adult medical examination without abnormal findings (principal); I10 Essential (primary) hypertension; E78.00 Pure hypercholesterolemia, unspecified; I48.0 Paroxysmal atrial fibrillation; R73.01 Impaired fasting glucose; N40.0 Benign prostatic hyperplasia without lower urinary tract symptoms; H00.019 Hordeolum externum unspecified eye, unspecified eyelid
CPT/HCPCS: G0439

== ENCOUNTER 2023-04-09 10:58 | Outpatient (REF) | payer MEDICARE, OTHER, SELFPAY ==
[2023-04-09 11:37] LABS: MANUAL DIFF FLAG NO
[2023-04-09 12:48] LABS: Basophils Percent Auto 0.6 % (0-2); Eosinophils Absolute Auto 0.1 X10*3/uL (0.0-0.4); Eosinophils Percent Auto 2.3 % (0-4); Hematocrit 47.7 % (42.0-52.0); Hemoglobin 15.7 g/dl (14.0-18.0); Imm Gran Abs Auto 0.01 X10*3/uL (0.00-0.03); Imm Gran Pct Auto 0.2 % (0.0-0.4); Lymphocytes Absolute Auto 1.2 X10*3/uL (1.2-4.9); Lymphocytes Percent Auto 23.7 % (20-40); Mean Corpuscular HGB Conc 32.9 g/dl (31.0-36.0); Mean Corpuscular Hemoglobin 28.2 pg (27.0-33.0); Mean Corpuscular Volume 85.8 fL (80.0-98.0); Mean Platelet Volume 9.7 fL (9.4-12.4); Monocytes Absolute Auto 0.8 X10*3/uL (0.1-1.2); Monocytes Percent Auto 14.7 % (2-11); Neutrophils Percent Auto 58.5 % (45-73); Platelet Count 308 X10*3/uL (160-400); Red Blood Count 5.56 X10*6/uL (4.60-5.80); White Blood Count 5.1 X10*3/uL (4.8-10.8)
[2023-04-09 13:14] LABS: Estimated Average Glucose 111 mg/dL; Hemoglobin A1C 150.7505 umol/L; Hemoglobin A1c % 5.5 % (<6.0)
[2023-04-09 13:32] LABS: B Type Natriuretic Peptide 25 pg/mL (<100)
[2023-04-09 13:39] LABS: Alanine Aminotransferase 31 U/L (0-40); Alkaline Phosphatase 106 U/L (39-117); Anion Gap 9 (12-20); Aspartate Amino Transferase 31 U/L (5-37); Bilirubin Total 1.4 mg/dL (0.0-1.0); Blood Urea Nitrogen 15 mg/dL (9-16); Calcium 9.1 mg/dL (8.4-10.2); Carbon Dioxide 27 mmol/L (22-29); Chloride 107 mmol/L (96-108); Cholesterol 116 mg/dL (<200); Estimated Glomerular Filt Rate > 60; Glucose Random 98 mg/dL (60-115); HDL Cholesterol 41 mg/dL (>40); LDL Cholesterol Calculated 66 mg/dL (<100); Potassium 4.1 mmol/L (3.3-5.1); Sodium 139 mmol/L (135-145); Total Protein 7.3 g/dL (6.5-8.0); Triglycerides 46 mg/dL (<150)
[2023-04-09 13:49] LABS: Free T4 (Free Thyroxine) 1.08 ng/dL (0.71-1.85); Thyroid Stimulating Hormone 1.21 uIU/mL (0.32-4.0)
[2023-04-09 15:47] LABS: Folate 8.4 ng/mL (> or = 4.0); Vitamin B12 646 pg/mL (200-900)
== END 2023-04-09 10:59 | disposition home or self-care (01) ==
LOC: HO.LAB 10:58
PROVIDERS: PCP Internal Medicine; Visit Provider Internal Medicine
DX: R73.01 Impaired fasting glucose (principal); E78.00 Pure hypercholesterolemia, unspecified
CPT/HCPCS: 36415; 80053; 80061; 82607; 82746; 83036; 83880; 84439; 84443; 85025

== ENCOUNTER 2023-10-01 09:45 | Outpatient (AMB) | payer MEDICARE, OTHER, SELFPAY ==
--- NOTE | 2023-10-01 09:54 | MHC.PC.OV ---
Vital Signs 10/01/23 09:55 Height 5 ft 11 in Weight 208 lb 8 oz BMI 29.1 BP 112/62 Blood Pressure Location Lt brachial Position Sitting Pulse 78 Pulse Source Pulse Oximeter Pulse Oximetry (%) 93 Oxygen Delivery Method Room Air Intake Visit Reasons: a fib Intake Note: Patient is here to follow up on Afib. Practicing Md Anesthesiologist Required: No Revenue Analyst: Not Required per policy Accompanied by: Self / Same As Patient Allergies No Known Allergies Allergy (Mild, Verified 10/01/23 09:55) N/A Medication List - Last Reconciled 10/01/23 by Talat Manning MD amlodipine 10 mg PO DAILY antiarthritic combination no.2 (glucosamine-chondroitin) mg PO ascorbate calcium (vitamin C) 1 g PO DAILY atorvastatin 20 mg PO BEDTIME 90 days flaxseed oil 5 mL miscellaneous ONCE hydrochlorothiazide 12.5 mg PO DAILY 90 days magnesium 200 mg PO DAILY melatonin 3 mg PO BEDTIME PRN metoprolol tartrate 12.5 mg (1/2 x 25 mg) PO BID 90 days multivitamin 1 tab PO DAILY rivaroxaban (Xarelto) 20 mg PO DAILY valsartan 160 mg PO DAILY Tobacco use date assessed: 10/01/23 Fall risk assessment: No Falls in past year Last assessed Fall Risk: 10/01/23 Dental Screening Dental Screen Date: 10/01/23 Did you have a dental visit in the last 12 months?: Yes Did you have a dental problem in the last 6 months where you did not have access to dental care?: No Was dental information given to patient?: Patient has dentist HPI a fib HPI Details 68-year-old overweight male(7 lb weight gain) coming in for follow-up last seen in 03/25/2023 having history of hypertension atrial fibrillation hypercholesterolemia impaired glucose tolerance and BPH. Patient's last colon test was 2017 and up-to-date.. Review of the notes had chalazion right lower lid excision by Dr. Argueta [facility] Medical History Paroxysmal atrial fibrillation Hypercholesterolemia Hypertension Surgical History History of tonsillectomy Burn of leg History of ankle surgery H/O thumb surgery History of shoulder surgery Family History Mother No problems noted. Father No problems noted. Social History Housing: House Alcohol intake: current Comment: 2x a week 2 can at one time Patient Tobacco Use Status: Never used Tobacco e-Cigarette/Vaping Use: Never Used Second Hand Smoke Exposure: No service: No Current occupational status: retired Cognitive needs: No Hearing needs: No Vision needs: Yes Questionnaire PHQ-9 Over the last 2 weeks, how often have you been bothered by any of the following problems? 1. Little interest or pleasure in doing things: not at all 2. Feeling down, depressed, or hopeless: not at all 3. Trouble falling or staying asleep, or sleeping too much: not at all 4. Feeling tired or having little energy: not at all 5. Poor appetite or overeating: not at all 6. Feeling bad about yourself - or that you are a failure or have let yourself or your family down: not at all 7. Trouble concentrating on things, such as reading the newspaper or watching television: not at all 8. Moving or speaking so slowly that other people could have noticed. Or the opposite - being so fidgety or restless that you have been moving around a lot more than usual: not at all 9. Thoughts that you would be better off or of hurting yourself in some way: not at all Total score: 0 Depression Screening Interpretation: Negative Depression Screening Done: Yes Source: Developed by Drs. Elliot Maldonado, Rut Ramos, Shravan Angel and colleagues, with an educational naseem from [employer]. Thrive Questionnaire Date Thrive assessed: 10/01/23 I am a: Patient What is your living situation today?: I have a steady place to live Within the past 12 months, did the food you bought not last and you didn't have the money to get more?: Never true Within the past 12 months, did you worry whether your food would run out before you got money to buy more?: Never true Do you have trouble paying for medicines?: No Do you have trouble getting transportation to medical appointments?: No Do you have trouble paying your heating and electricity bill?: No Do you have trouble taking care of your child, family member or friend?: No Do you have trouble with day-to-day activities such as bathing, preparing meals, shopping, managing finances, etc.?: No Are you currently unemployed and looking for a job?: No Are you interested in more education?: No Currently or been in a relationship where the following occur: no concerns reported THRIVE Score: 0 AUDIT C Alcohol Use Questionnaire (AUDIT-C) 1. How often do you have a drink containing alcohol?: Never Total Score: 0 KURTIS-7 AMB Questionnaire KURTIS-7 Date KURTIS - 7 assessed: 10/01/23 Feeling nervous, anxious, or on edge: 0 = Not at all Not being able to stop or control worryin = Not at all Worrying too much about different things: 0 = Not at all Trouble relaxin = Not at all Being so restless that it is hard to sit still: 0 = Not at all Becoming easily annoyed or irritable: 0 = Not at all Feeling afraid as if something awful might happen: 0 = Not at all Total KURTIS-7 score (0-4 normal; 5-9 mild; 10-14 moderate; 15-21 severe): 0 Source: Developed by Drs. Elliot Maldonado, Rut Ramos, Shravan Angel and colleagues, with an educational naseem from [employer]. Physical exam (Primary Care) Vital Signs: Last Vital Signs Pulse 78 10/01/23 09:55 BP 112/62 10/01/23 09:55 Pulse Ox 93 10/01/23 09:55 Oxygen Delivery Method Room Air 10/01/23 09:55 BMI result Body Mass Index 29.1 Tobacco/Smoking Status: Tobacco use Status Tobacco use date assessed 10/01/23 10/01/23 10:01 Patient Tobacco Use Status Never used Tobacco 10/01/23 10:01 e-Cigarette/Vaping Use Never Used 10/01/23 10:01 PHQ-9: PHQ-9 Score PHQ-9: Total score 0 10/01/23 10:01 Depression Screening Interpretation: Negative Thrive Assessment: Date of Thrive Assessment Date Thrive assessed 10/01/23 10/01/23 10:01 Currently or been in a relationship where the following occur: no concerns reported Const General: alert; No acute distress Eyes Conjunctivae: conjunctivae normal Resp Auscultation: clear to auscultation bilaterally Cardio Rate: regular rate Rhythm: regular rhythm GI Inspection: Yes normal to inspection Extrem General: Yes normal to inspection and No edema Assessment and Plan Assessment & Plan (1) Paroxysmal atrial fibrillation: Comment: Status post ablation February 2021 Code(s): I48.0 - Paroxysmal atrial fibrillation Plan: Patient continues with anticoagulation with Xarelto (2) Hypertension: Code(s): I10 - Essential (primary) hypertension Qualifiers: Hypertension type: essential hypertension Qualified Code(s): I10 - Essential (primary) hypertension Plan: Continue with blood pressure medication. Decrease salt intake and exercise on valsartan 160 mg once a day metoprolol 12.5 mg twice a day hydrochlorothiazide 12.5 mg once a day and amlodipine 10 mg once a day (3) Hypercholesterolemia: Code(s): E78.00 - Pure hypercholesterolemia, unspecified Plan: Avoid fried foods, chicken skin, eggs, butter margarine, pastries and meat. Be it pork or beef they have a lot of cholesterol LDL goal of less than 100 on atorvastatin 20 mg once a day (4) BPH (benign prostatic hyperplasia): Code(s): N40.0 - Benign prostatic hyperplasia without lower urinary tract symptoms Plan: Continue to monitor. Orders: Orders Complete Blood Count Auto Diff 6 Months I48.0 - Paroxysmal atrial fibrillation Comprehensive Met. Panel 6 Months I48.0 - Paroxysmal atrial fibrillation Prostate Specific Antigen Scr 6 Months I48.0 - Paroxysmal atrial fibrillation Lipid Panel 6 Months E78.00 - Pure hypercholesterolemia, unspecified, I48.0 - Paroxysmal atrial fibrillation Thyroid Stimulating Hormone 6 Months I48.0 - Paroxysmal atrial fibrillation Free T4 (Free Thyroxine) 6 Months I48.0 - Paroxysmal atrial fibrillation Vitamin B12 and Folate 6 Months I48.0 - Paroxysmal atrial fibrillation Basic Metabolic Panel Today I48.0 - Paroxysmal atrial fibrillation Coding Level of Care Code Est Pt Level 4 (70704) Diagnoses Paroxysmal atrial fibrillation I48.0 Essential hypertension I10 Hypertension type: essential hypertension Hypercholesterolemia E78.00 BPH (benign prostatic hyperplasia) N40.0
[2023-10-01 09:55] VITALS: BP 112/62; PULSE 78; O2SAT 93; BMI 29.1
== END 2023-10-01 10:32 | disposition home or self-care (01) ==
PROVIDERS: PCP Internal Medicine; Visit Provider Internal Medicine
DX: I48.0 Paroxysmal atrial fibrillation (principal); I10 Essential (primary) hypertension; E78.00 Pure hypercholesterolemia, unspecified; N40.0 Benign prostatic hyperplasia without lower urinary tract symptoms
CPT/HCPCS: 99214

== ENCOUNTER 2023-10-10 12:53 | Outpatient (REF) | payer MEDICARE, OTHER, SELFPAY ==
[2023-10-10 15:05] LABS: Anion Gap 9 (12-20); Blood Urea Nitrogen 14 mg/dL (9-16); Calcium 9.4 mg/dL (8.4-10.2); Carbon Dioxide 26 mmol/L (22-29); Chloride 109 mmol/L (96-108); Estimated Glomerular Filt Rate > 60; Glucose Random 96 mg/dL (60-115); Potassium 4.1 mmol/L (3.3-5.1); Sodium 140 mmol/L (135-145)
== END 2023-10-10 12:54 | disposition home or self-care (01) ==
LOC: HO.LAB 12:53
PROVIDERS: PCP Internal Medicine; Visit Provider Internal Medicine
DX: I48.0 Paroxysmal atrial fibrillation (principal)
CPT/HCPCS: 36415; 80048

== ENCOUNTER 2023-12-05 10:17 | Outpatient (AMB) | payer MEDICARE, OTHER, SELFPAY ==
[2023-12-05 10:20] VITALS: BP 122/82; PULSE 71; BMI 28.0
--- NOTE | 2023-12-05 10:20 | A.OFFVIS_ITS ---
Vital Signs 12/05/23 10:20 Height 5 ft 11 in Weight 200 lb 9.93 oz BMI 28.0 BP 122/82 Blood Pressure Location Lt brachial Position Sitting Pulse 71 Intake Visit Reasons: 1 YEAR FOLLOW UP AFTER ECHO Intake Note: 1 year follow-up with ekg c/o burning on left lower chest with activity Safe Deposit Box Rental Clerk Required: No Allergies No Known Allergies Allergy (Mild, Verified 10/01/23 09:55) N/A Medication List - Last Reconciled 12/05/23 by Faisal Brown MD amlodipine 10 mg PO DAILY antiarthritic combination no.2 (glucosamine-chondroitin) mg PO ascorbate calcium (vitamin C) 1 g PO DAILY atorvastatin 20 mg PO BEDTIME 90 days flaxseed oil 5 mL miscellaneous ONCE hydrochlorothiazide 12.5 mg PO DAILY 90 days magnesium 200 mg PO DAILY melatonin 3 mg PO BEDTIME PRN metoprolol tartrate 12.5 mg (1/2 x 25 mg) PO BID 90 days multivitamin 1 tab PO DAILY rivaroxaban (Xarelto) 20 mg PO DAILY valsartan 160 mg PO DAILY HPI Comments Details: Tommy comes for annual follow-up of his atrial fibrillation. Overall he has been doing well from cardiac perspective although says more recently when he is pushing himself on the elliptical he gets burning sensation in his lower precordial area. Symptoms subside with resting. He is not consistently present but only when he pushes himself. He denies any prolonged palpitation irregular heartbeat. Denies any heart failure symptoms. Does not usually measures blood pressure but takes his medications regularly. [facility] Medical History Paroxysmal atrial fibrillation Hypercholesterolemia Hypertension Surgical History History of tonsillectomy Burn of leg History of ankle surgery H/O thumb surgery History of shoulder surgery Family History Mother No problems noted. Father No problems noted. Social History Housing: House Alcohol intake: current Comment: 2x a week 2 can at one time Patient Tobacco Use Status: Never used Tobacco e-Cigarette/Vaping Use: Never Used Second Hand Smoke Exposure: No service: No Current occupational status: retired Cognitive needs: No Hearing needs: No Vision needs: Yes Review of Systems Const Denies chills, Denies fatigue, Denies fever(s), Denies frequent falls, Denies weakness, Denies weight gain and Denies weight loss ENT Denies dizziness Card Denies chest pain, Denies leg edema, Denies lightheadedness, Denies palpitations, Denies dyspnea, Denies dyspnea on exertion, Denies orthopnea and Denies other (loss of consciousness) Resp Denies cough, Denies dyspnea and Denies dyspnea on exertion GI Denies hematochezia and Denies change in stool character Musc Denies abnormal gait, Denies muscle weakness, Denies numbness, Denies radiating pain into limb and Denies tingling Neuro Denies abnormal gait, Denies dizziness, Denies frequent falls, Denies numbness, Denies tingling and Denies weakness Endo Denies fatigue and Denies palpitations Physical Exam Vital Signs: Last Vital Signs Pulse 71 12/05/23 10:20 BP 122/82 12/05/23 10:20 BMI result Body Mass Index 28.0 Const General: cooperative, comfortable, no acute distress, well developed, alert, awake and Physically active Nutritional Appearance: well nourished and overweight Orientation/consciousness: patient oriented x3 Limitations: no limitations HEENT Head: Yes normocephalic and Yes atraumatic Neck Neck: Yes trachea midline, Yes supple and Yes no JVD Resp Effort & Inspection: normal respiratory effort Auscultation: clear to auscultation bilaterally Cardio Jugular venous distension: no JVD Palpation: normal PMI Rate: regular rate Rhythm: regular rhythm Heart sounds: S1 normal heart sound present, S2 normal heart sound present, no click, no gallops, no murmurs and no rubs GI Auscultation: normal bowel sounds Skin General skin exam: no rashes or lesions noted Neuro General: patient oriented x3 and no focal motor deficits Extrem General: Yes no clubbing, cyanosis or edema Office Procedures EKG Details: EKG shows normal sinus rhythm normal EKG [id number], Complete Assessment & Plan Assessment & Plan (1) Exertional chest pain: Code(s): R07.9 - Chest pain, unspecified Category: Medical Plan: Exertional chest pain this elderly gentleman highly concerning for obstructive coronary artery disease and myocardial ischemia. Suggest exercise myocardial perfusion imaging to further assess for the same. Further treatment based on the findings. This was discussed with him. He is agreeable to the management. Will also obtain echocardiogram to assess for LV systolic and diastolic function as well as to evaluate for hypertensive heart disease. Target goal LDL less than 70 mg/dL. (2) Paroxysmal atrial fibrillation: Comment: Status post ablation February 2021 Code(s): I48.0 - Paroxysmal atrial fibrillation Category: Medical Plan: Paroxysmal atrial fibrillation status post ablation. Patient doing very well with rhythm control approach will continue pursue rhythm control approach. Avoidance of stimulants was discussed. Continue metoprolol therapy at current dose. Continue full oral anticoagulation, currently on Xarelto 20 mg daily. Semi annual renal function test should be pursued. CHADSVASc score of at least 4. (3) Hypertension: Code(s): I10 - Essential (primary) hypertension Category: Medical Qualifiers: Hypertension type: essential hypertension Qualified Code(s): I10 - Essential (primary) hypertension Plan: Hypertension which is currently well optimized advised to monitor blood pressure at home maintain a log. Goal blood pressure less than 130/84. Importance of good blood pressure control was discussed. Low-salt diet was discussed advised to monitor blood pressure intermittently at home. Follow up in the clinic in 1 year's time, sooner p.r.n.. Thank you for allowing me to partake in his care Coding Level of Care Code Est Pt Level 4 (63120) Diagnoses Exertional chest pain R07.9 Paroxysmal atrial fibrillation I48.0 Essential hypertension I10 Hypertension type: essential hypertension CPT Codes EKG - CPT: [id number], Complete ([id number])
== END 2023-12-05 10:42 | disposition home or self-care (01) ==
PROVIDERS: PCP Internal Medicine; Visit Provider Internal Medicine Cardiovascular Disease
DX: R07.9 Chest pain, unspecified (principal); I48.0 Paroxysmal atrial fibrillation; I10 Essential (primary) hypertension
CPT/HCPCS: 93010; 99214

== ENCOUNTER → 2023-12-05 10:17 | Outpatient (BNVA) | payer MEDICARE, OTHER, SELFPAY | PROVIDERS: PCP Internal Medicine; Visit Provider Internal Medicine Cardiovascular Disease | DX: R07.9 Chest pain, unspecified (principal); I48.0 Paroxysmal atrial fibrillation; I10 Essential (primary) hypertension | CPT/HCPCS: 93005; 99212 ==

== ENCOUNTER 2024-01-10 10:28 | Outpatient (REF) | payer MEDICARE, OTHER, SELFPAY ==
[2024-01-10 12:34] LABS: Prostate Specific Antigen 1.59 ng/mL (<0.05-4.0)
== END 2024-01-10 10:29 | disposition home or self-care (01) ==
LOC: HO.LAB 10:28
PROVIDERS: PCP Internal Medicine; Visit Provider Nurse Practitioner Family
DX: N40.0 Benign prostatic hyperplasia without lower urinary tract symptoms (principal); Z12.5 Encounter for screening for malignant neoplasm of prostate
CPT/HCPCS: 36415; 84153

== ENCOUNTER → 2024-01-13 07:49 | Outpatient (REF) | payer MEDICARE, OTHER, SELFPAY ==
--- NOTE | ~2024-01-13 | NM_ITS ---
EXERCISE MYOCARDIAL PERFUSION STUDY INDICATION: Chest pain to evaluate for myocardial ischemia TECHNIQUE: The patient was brought in for an exercise perfusion study on 01/13/2024. Patient performed exercise as per Ranjit protocol and was injected 30 mCi of sestamibi once target heart rate was achieved. Images were obtained using the SPECT gamma camera interlaced with the gating device. Images were obtained in supine position. Resting perfusion study was performed on 01/14/2024. Patient was administered 30 mCi of sestamibi intravenously at rest. Images were then obtained in supine position. Images obtained with and without CT attenuation. Total DLP 101 mGy-cm. Images were processed with the software and compared side to side in short axis, horizontal long axis and vertical long axis views. FINDINGS: Raw images were reviewed The stress perfusion study showed nonattenuated images show moderately reduced uptake in the basal inferior wall of the LV myocardium as well as minimal thinning of the distal lateral wall of the myocardium. Remainder of the myocardium is normally perfused. Attenuated corrected images show normal uptake noted in all segments of the myocardium. The gated study shows normal LV systolic function with calculated LVEF of 74%. LV cavity is normal in size. The gated study shows normal systolic wall thickening and contraction of segments. Resting study shows no change in perfusion pattern compared to stress perfusion study. Gating at rest reveals normal systolic wall motion with ejection fraction at 60%. The findings are consistent with likely normal myocardial perfusion. NM/NM cardiolite stress test IMPRESSION: 1. Myocardial perfusion imaging study shows likely normal myocardial perfusion. 2. Gated LVEF is 60%. 3. Transient ischemic dilatation not present. EKG revealed equivocal for ischemia. Electronically signed by: Faisal Brown MD 01/14/2024 04:17 PM EDT
--- NOTE | 2024-01-13 07:53 | CA_ITS ---
Acquisition Time: 2024-01-13 08:22:15 Total Exercise Time: 00:06:28 Test Indications: Abnormal ECG Medications: SEE H Protocol: RONEY Max HR: 137 BPM 90% of Pred: 151 BPM Max BP: 156/084 mmHG Max Work Load: 7.6 METS Exercise stress test exercise 6 min 28 sec of Roney protocol achieving 90% MPHR, with moderate SOB, no chest discomfort, without arrhythmias, with normotensive response to exercise ,without EKG changes. Breathing returned to baseline with rest. Nuclear images pending. Test reviewed with Dr. Bonds. Referred By: Faisal Brown Overread By: Mary Sesay
--- NOTE | 2024-01-13 07:53 | CA_ITS ---
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 The calculated ejection fraction is 58% by biplane method. - No obvious valvular pathology seen on this study. Findings Left Ventricle Normal left ventricular cavity size. The left ventricular systolic function is normal. The calculated ejection fraction is 58% by biplane method. There is no evidence of regional wall motion abnormalities. Diastolic function is normal for age. There is mild septal asymmetric hypertrophy. Right Ventricle Mildly increased right ventricular cavity size. There is normal right ventricular systolic function. Atria Both atria are normal in size. Aortic Valve There is a normal trileaflet aortic valve. There is no aortic valve stenosis. There is trace (trivial) aortic valve regurgitation. Mitral Valve The mitral valve appears normal. There is trace mitral valve regurgitation. There is no mitral valve stenosis. Pulmonic Valve The pulmonic valve is likely normal. Tricuspid Valve Normal tricuspid valve structure. There is mild tricuspid valve regurgitation. There is no evidence of pulmonary hypertension. Great Vessels The asc aorta and aortic arch are normal in size. Venous The inferior vena cava was not well visualized. Pericardium/Pleural There is no evidence of pericardial effusion. Prior Study Comparison No significant change compared to prior study dated: 12/04/2021. Recommendations, Care & Conclusions No obvious valvular pathology seen on this study. Measurements 2D Linear Measurements IVSd: 1.01 0.6-0.9/0.6-1.0 cm LVIDd: 5.21 3.9-5.3/4.2-5.9 cm LVIDd Index: 2.47 2.4-3.2/2.2-3.1 cm/m2 LVIDs: 3.40 2.0-3.6 cm LVPWd: 0.82 0.7-1.1 cm LA Diam: 4.40 2.7-3.8/3.0-4.0 cm LAIDs Index: 2.09 1.5-2.3 cm/m2 LV Mass: 215.48 67-162/88-224 g LV Mass Index: 102.12 43-95/49-115 g/m2 LVOT Diam: 2.30 3.0+(-)1.3 cm 2D Systolic Function EF 4C: 62.30 >55% EF 2C: 54.60 >55% EF BiP: 57.70 >55% Mitral Valve MV Pk E: 0.93 MV PK A: 0.57 MV Decel Time: 187.00 E/A: 1.60 E'Lateral: 11.10 E'Medial: 7.62 E/E' Med: 12.10 E/E' Lat: 8.30 PHT: 55.00 MVA PHT: 4.00 Decel Forest: 4.94 Aortic Valve AoV Pk Andrew: 1.36 AoV Pk Grad: 7.00 BINTA: 3.81 LVOT LVOT Pk Andrew: 1.17 LVOT Mn Andrew: 0.82 LVOT VTI: 0.29 LVOT Pk Grad: 5.00 LVOT Mn Grad: 3.00 LVOT Diam: 2.30 LVOT Area: 4.15 Diastolic Function MV Pk E: 0.93 MV Pk A: 0.57 E/A: 1.60 E'Medial: 7.62 E/E' Med: 12.10 E' Laterial: 11.10 E/E' Lat: 8.30 Right Ventricle TAPSE (mm): 25.80 TVS' Andrew: 11.20 Tricuspid Valve TR Pk Andrew: 2.68 TR Pk Grad: 29.00 RA Press: 3.00 RVSP: 32.00 Great Vessels Aorta Sinus of Valsalva: 3.40 2.0-3.5 cm Ao Asc: 3.60 2.1-3.4 cm Pulmonary Veins Pulm Vein S/D 0.90 Pulmonary Valve PV Pk Andrew: 1.18 Peak PV Grad: 6.00 Updated in Other Vendor System with Status of Final Aries Lagos MD electronically signed on 01/14/2024 3:40:50 PM with status of Final
== END ==
LOC: HO.CARD 07:49
PROVIDERS: PCP Internal Medicine; Visit Provider Internal Medicine Cardiovascular Disease
DX: R07.9 Chest pain, unspecified (principal)
CPT/HCPCS: 78452; 93017; 93306; A9500

== ENCOUNTER → 2024-01-13 07:53 | Outpatient (BNV) | payer MEDICARE, OTHER, SELFPAY | PROVIDERS: PCP Internal Medicine; Visit Provider Nurse Practitioner | DX: R07.9 Chest pain, unspecified (principal); I42.2 Other hypertrophic cardiomyopathy; I36.1 Nonrheumatic tricuspid (valve) insufficiency; R06.02 Shortness of breath | CPT/HCPCS: 78452; 93016; 93018; 93320; 93350 ==

== ENCOUNTER 2024-01-14 09:37 | Outpatient (REF) | payer MEDICARE, OTHER, SELFPAY ==
[2024-01-14 16:41] LABS: Urine Cytology See Pathology rpt
== END 2024-01-14 09:38 | disposition home or self-care (01) ==
LOC: HO.LNP 09:37
PROVIDERS: PCP Internal Medicine; Visit Provider Nurse Practitioner Family
DX: R35.1 Nocturia (principal); R35.0 Frequency of micturition
CPT/HCPCS: 51798; 81003; 88112; 99212

== ENCOUNTER 2024-01-14 09:37 | Outpatient (AMB) | payer MEDICARE, OTHER, SELFPAY ==
--- NOTE | 2024-01-14 09:46 | MHC.OFFVIS ---
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- amlodipine 10 mg PO DAILY antiarthritic combination no.2 (glucosamine-chondroitin) mg PO ascorbate calcium (vitamin C) 1 g PO DAILY atorvastatin 20 mg PO BEDTIME 90 days flaxseed oil 5 mL miscellaneous ONCE hydrochlorothiazide 12.5 mg PO DAILY 90 days magnesium 200 mg PO DAILY melatonin 3 mg PO BEDTIME PRN metoprolol tartrate 12.5 mg (1/2 x 25 mg) PO BID 90 days multivitamin 1 tab PO DAILY rivaroxaban (Xarelto) 20 mg PO DAILY valsartan 160 mg PO DAILY HPI Comments Details: Tommy is a plesant 68 year old male patinet of Dr. Manning. He has a PMH of TIA, paroxysmal AFib, cognitive impairment, hypercholesteremia and hypertension. He presents to the office today for follow-up. In discussion with the patient today he reports since his last office visit here approximately 1 year ago he has had no bothersome urinary issues or concerns. He does report noting episodes of urinary frequency and nocturia however did not find them bothersome and feels he is self managing. Recent PSA results reviewed with the patient today as noted and trended below. In office urinalysis results reviewed with the patient today. PVR 35 mL. PSA's are as follows: 04/25 1.4, 03/27 1.5, 01/26 1.7, 01/27 1.6 Workup has included bladder ultrasound which demonstrated the bladder is well distended and normal. Bilateral ureteral jets are demonstrated. Prevoid bladder volume is 493.1 mL. Postvoid bladder volume is 184.4 mL. Prostate volume is 55.5 mL. Patient otherwise denies urinary urgency, incontinence, hematuria, dysuria, foul smelling urine, flank pain, fever, and or chills. [facility] Medical History Paroxysmal atrial fibrillation Hypercholesterolemia Hypertension Surgical History History of tonsillectomy Burn of leg History of ankle surgery H/O thumb surgery History of shoulder surgery Family History Mother No problems noted. Father No problems noted. Social History Housing: House Alcohol intake: current Comment: 2x a week 2 can at one time Patient Tobacco Use Status: Never used Tobacco e-Cigarette/Vaping Use: Never Used Second Hand Smoke Exposure: No service: No Current occupational status: retired Cognitive needs: No Hearing needs: No Vision needs: Yes Review of Systems Const Reports as per HPI Eyes Reports no additional complaints ENT Reports no additional complaints Card Reports as per HPI Resp Reports no additional complaints GI Reports no additional complaints Reports as per HPI Musc Reports no additional complaints Neuro Reports as per HPI Psych Reports no additional complaints Endo Reports no additional complaints Dima/Lymph Reports lymphadenopathy Aller/Immun Reports no additional complaints Physical Exam Const General: cooperative, healthy appearing, comfortable, no acute distress, well developed, alert and awake Orientation/consciousness: patient oriented x3 HEENT Head: Yes normal to inspection, Yes normocephalic and Yes atraumatic Ears: hearing grossly normal bilaterally Eyes General: appearance normal, both eyes and all related structures Neck Neck: Yes normal visual inspection and Yes trachea midline Chest Chest palpation & inspection: normal inspection of the chest Resp Effort & Inspection: normal respiratory effort and able to speak in complete sentences Cardio Rate: regular rate GI Inspection: Yes normal to inspection General: Yes no CVA tenderness Back/Spine/Pelvis Back: no CVA tenderness Skin General skin exam: no rashes or lesions noted Neuro General: patient oriented x3 Extrem General: Yes normal to inspection Psych Appearance: grossly normal and well kempt Mental Status: mental status grossly normal Speech and movement: Normal speech and movement present and Clear speech present Affect: normal affect Attitude: cooperative Thought process: Normal thought process present Thought content: Normal thought content present Insight: Good insight present (Psych) Judgement: Good judgement present (Psych) Office Procedures Post Void Residual Post Residual Void Post Void Residual (PVR): 35 [id number] Void Residual by ultrasound Results AMB Urinalysis, Automated UA Leukoctes 0 Sammy/uL Last Edit by Jaswinder Llamas on 01/14/24 10:03 UA Nitrite Negative Last Edit by Jaswinder Llamas on 01/14/24 10:03 UA Urobilinogen 0.2 mg/dL Last Edit by Jaswinder Llamas on 01/14/24 10:03 UA Protein 0 mg/dL Last Edit by [facility] on 01/14/24 10:03 UA pH 6.0 Last Edit by [facility] on 01/14/24 10:03 UA Blood 10 Dickson/uL Last Edit by [facility] on 01/14/24 10:03 UA Specific [place] 1.015 Last Edit by [facility]jayesh on 01/14/24 10:03 UA Ketone Last Edit by [employer]Fl[employer]jayesh on 01/14/24 10:03 UA Bilirubin 0 mg/dL Last Edit by [employer]Fl[employer]jayesh on 01/14/24 10:03 UA Glucose 0 mg/dL Last Edit by [facility] on 01/14/24 10:03 Results Reviewed Results Reviewed: Laboratory Last Values Urine pH (Auto) 6.0 01/14/24 09:59 Specific [place] (Auto) 1.015 01/14/24 09:59 Urine Protein (Auto) 0 mg/dL 01/14/24 09:59 Glucose (UA)(Auto) 0 mg/dL 01/14/24 09:59 Urine Blood (Auto) 10 Dickson/uL 01/14/24 09:59 Urine Nitrite (Auto) Negative 01/14/24 09:59 Urine Bilirubin (Auto) 0 mg/dL 01/14/24 09:59 Urine Urobilinogen (Auto) 0.2 mg/dL 01/14/24 09:59 Leukocyte Esterase (Auto) 0 Sammy/uL 01/14/24 09:59 Assessment & Plan Assessment & Plan (1) Frequency of micturition: Code(s): R35.0 - Frequency of micturition Category: Medical (2) Nocturia: Code(s): R35.1 - Nocturia Category: Medical Plan In office urinalysis results reviewed with the patient today; as noted above PVR 35mL. Patient currently denies any bothersome urinary issues or concerns. He is happy with his current voiding parameters. Recent PSA results reviewed with the patient today. Will continue with surveillance monitoring at this time. Will obtain PSA in 1 year. Follow-up in 1 year with PSA and PVR; or sooner with any questions, concerns, and or issues. Orders: Orders AMB Urinalysis Automated Today Z13.9 - Encounter for screening, unspecified AMB Post Void Residual by ultrasound Today R35.1 - Nocturia Prostate Specific Antigen 1 Year N40.0 - Benign prostatic hyperplasia without lower urinary tract symptoms Urine Cytology Today Z13.9 - Encounter for screening, unspecified Patient Instructions: The patient had an opportunity to ask questions regarding the treatment plan. All questions were answered. Physical exam, labs, and imaging were discussed and reviewed in detail. As well as risks, benefits, and discussion of treatment choices. No major barriers to understanding were identified. The patient expressed understanding and agreement with the above treatment plan. The patient was made aware they should contact our office by phone for worsening of their current condition, the appearance of new symptoms, or with any questions or concerns. Compliance is encouraged with any medications and follow up testing that is ordered. It is a privilege to be allowed the opportunity to participate in? your urological care.? Again, if you have any questions or concerns If you have any questions or concerns please do not hesitate to contact me. The office is [phone]. This note is constructed using voice recognition software. While every effort has been made to ensure accuracy automatic lathe operator errors may have been included. Yours sincerely, CIRO Granados Coding Level of Care Code Est Pt Level 3 (58257) Diagnoses Frequency of micturition R35.0 Nocturia R35.1 CPT Codes Post Residual Void - PVR CPT Code: 33154-[id number] Void Residual by ultrasound ([id number])
== END 2024-01-14 10:20 | disposition home or self-care (01) ==
PROVIDERS: PCP Internal Medicine; Visit Provider Nurse Practitioner Family
DX: R35.0 Frequency of micturition (principal); R35.1 Nocturia; Z13.9 Encounter for screening, unspecified
CPT/HCPCS: 99213

== ENCOUNTER 2024-03-28 09:14 | Outpatient (REF) | payer MEDICARE, OTHER, SELFPAY ==
[2024-03-28 09:25] LABS: MANUAL DIFF FLAG NO
[2024-03-28 10:22] LABS: Basophils Percent Auto 0.7 % (0-2); Eosinophils Absolute Auto 0.2 X10*3/uL (0.0-0.4); Hematocrit 44.9 % (42.0-52.0); Imm Gran Abs Auto 0.02 X10*3/uL (0.00-0.03); Imm Gran Pct Auto 0.4 % (0.0-0.4); Lymphocytes Absolute Auto 1.3 X10*3/uL (1.2-4.9); Mean Corpuscular HGB Conc 33.4 g/dl (31.0-36.0); Mean Corpuscular Volume 83.9 fL (80.0-98.0); Mean Platelet Volume 9.3 fL (9.4-12.4); Monocytes Absolute Auto 0.8 X10*3/uL (0.1-1.2); Monocytes Percent Auto 14.3 % (2-11); Neutrophils Absolute Auto 3.3 x10*3/uL (2.0-8.3); Neutrophils Percent Auto 58.6 % (45-73); Platelet Count 288 X10*3/uL (160-400); Red Blood Count 5.35 X10*6/uL (4.60-5.80); Red Cell Distribution Width 12.9 % (11.0-16.0); White Blood Count 5.7 X10*3/uL (4.8-10.8)
[2024-03-28 11:09] LABS: Alanine Aminotransferase 52 U/L (0-40); Alkaline Phosphatase 100 U/L (39-117); Anion Gap 11 (12-20); Aspartate Amino Transferase 39 U/L (5-37); Bilirubin Total 1.4 mg/dL (0.0-1.0); Blood Urea Nitrogen 13 mg/dL (9-16); Calcium 9.3 mg/dL (8.4-10.2); Carbon Dioxide 27 mmol/L (22-29); Chloride 106 mmol/L (96-108); Cholesterol 118 mg/dL (<200); Estimated Glomerular Filt Rate > 60; Glucose Random 99 mg/dL (60-115); HDL Cholesterol 38 mg/dL (>40); LDL Cholesterol Calculated 69 mg/dL (<100); Potassium 4.1 mmol/L (3.3-5.1); Sodium 140 mmol/L (135-145); Total Protein 7.1 g/dL (6.5-8.0); Triglycerides 56 mg/dL (<150)
[2024-03-28 11:25] LABS: Free T4 (Free Thyroxine) 1.05 ng/dL (0.71-1.85)
[2024-03-28 11:34] LABS: Folate 8.3 ng/mL (> or = 4.0); Prostate Specific Antigen Scr 2.38 ng/mL (<0.05-4.0); Vitamin B12 690 pg/mL (200-900)
== END 2024-03-28 09:15 | disposition home or self-care (01) ==
LOC: HO.LAB 09:14
PROVIDERS: PCP Internal Medicine; Visit Provider Internal Medicine
DX: I48.0 Paroxysmal atrial fibrillation (principal); E78.00 Pure hypercholesterolemia, unspecified; Z12.5 Encounter for screening for malignant neoplasm of prostate
CPT/HCPCS: 36415; 80053; 80061; 82607; 82746; 84153; 84439; 84443; 85025

== ENCOUNTER 2024-04-08 10:15 | Outpatient (AMB) | payer MEDICARE, OTHER, SELFPAY ==
[2024-04-08 10:28] VITALS: BP 124/68; PULSE 75; O2SAT 98; BMI 27.8
--- NOTE | 2024-04-08 10:28 | A.OFFVIS_ITS ---
Intake Vital Signs 04/08/24 10:28 Height 5 ft 11 in Weight 199 lb BMI 27.8 BP 124/68 Blood Pressure Location Lt brachial Position Sitting Pulse 75 Pulse Source Pulse Oximeter Pulse Oximetry (%) 98 Oxygen Delivery Method Room Air Intake Visit Reasons: [facility] G0439 Allergies No Known Allergies Allergy (Mild, Verified 04/08/24 10:28) N/A Medication List - Last Reconciled 04/08/24 by Talat Manning MD amlodipine 10 mg PO DAILY antiarthritic combination no.2 (glucosamine-chondroitin) mg PO ascorbate calcium (vitamin C) 1 g PO DAILY atorvastatin 20 mg PO BEDTIME 90 days flaxseed oil 5 mL miscellaneous ONCE hydrochlorothiazide 12.5 mg PO DAILY 90 days magnesium 200 mg PO DAILY melatonin 3 mg PO BEDTIME PRN metoprolol tartrate 12.5 mg (1/2 x 25 mg) PO BID 90 days multivitamin 1 tab PO DAILY rivaroxaban (Xarelto) 20 mg PO DAILY valsartan 160 mg PO DAILY HPI [facility] G0439 HPI Details The patient is a 68-year-old male presenting with an annual well visit. He has a history of atrial fibrillation for which he is on anticoagulation therapy with Xarelto 20 mg daily. He follows with cardiology and has had routine evaluations, including a recent echocardiogram showing normal left ventricular function with an ejection fraction of 58% and no valvular pathology. A stress test in January also revealed normal myocardial perfusion imaging and an ejection fraction of 60%. The patient also has a history of hypertension, managed with amlodipine, hydrochlorothiazide, metoprolol, and valsartan. His blood pressure has been reported as well-controlled. Hypercholesterolemia is managed with atorvastatin, and recent LDL cholesterol was 69 mg/dL. There is a history of benign prostatic hyperplasia, and he is monitored by urology, with recent prostate-specific antigen levels reported as normal. Additionally, there is a history of fatty liver disease, as mildly elevated liver enzymes were noted. Previous abdominal ultrasounds have shown no significant liver pathology. The patient's CHADS2-VASc score is 4, indicating a moderate risk of thromboembolism due to atrial fibrillation. - Alcohol use: Consumes alcohol a couple of times per week, typically two beers each occasion. - Tobacco use: Denies smoking. - Diet: High intake of vegetables and fr uits; strives for a plant-based diet. - Activity: Engages in gym activities th ree times a week and performs yard work. - Hydration: Consumes a couple of 12-16 ounce bottles of water daily. - Current medication regimen includes pollack pplements such as glucosamine, vitamin C, flaxseed, magnesium, multivitamins, and melatonin. - Expressed need for a refill on valsart an at [facility] on [facility]. - Constitutional: Denies fever. - Cardiovascular: Denies chest pain and exertional dyspnea. - Respiratory: Denies shortness of breat h. - Gastrointestinal: Denies nausea, vomit ing, dysphagia, heartburn; normal bowel movements. - Genitourinary: Reports nocturia two to three times per night. - Neurological: Denies dizziness or sync ope. - Ear, Nose, Mouth, Throat: No difficult y swallowing; observed thirst at night. - Musculoskeletal: Denies any new lumps, bumps, or related pain or masses. 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 [facility] Medical History Paroxysmal atrial fibrillation Hypercholesterolemia Hypertension Surgical History History of tonsillectomy Burn of leg History of ankle surgery H/O thumb surgery History of shoulder surgery Family History Mother No problems noted. Father No problems noted. Social History Housing: House Alcohol intake: current Comment: 2x a week 2 can at one time Patient Tobacco Use Status: Never used Tobacco e-Cigarette/Vaping Use: Never Used Second Hand Smoke Exposure: No service: No Current occupational status: retired Cognitive needs: No Hearing needs: No Vision needs: Yes Questionnaire Medicare Wellness Checkup What [age] What gender do you identify with?: male During the past 4 weeks, how much have you been bothered by emotional problems such as feeling anxious, depressed, irritable, sad or downhearted, and blue?: not at all During the past 4 weeks, has your physical & emotional health limited your social activities with family, friends, neighbors, or groups?: not at all During the past 4 weeks, how much bodily pain have you generally had?: mild pain During the past 4 weeks, was someone available to help you if you needed & wanted help?: yes, as much as I wanted During the past 4 weeks, what was the hardest physical activity you could do for at least 2 minutes?: heavy Can you get to places out of walking distance without help? (For eg., can you travel alone on buses, taxis or drive your car?): Yes Can you go shopping for groceries or clothes without someone's help?: Yes Can you prepare your own meals?: Yes Can you do your housework without help?: Yes Because of any health problems, do you need the help of another person with your personal care needs such as eating, bathing, dressing or getting around the house?: No Can you handle your own money without help?: Yes During the past 4 weeks, how would you rate your health in general?: very good During the past 4 weeks how have things been going for you?: pretty well Are you having difficulties driving your car?: no Do you always fasten your seat belt when you are in a car?: yes, usually During past 4 weeks, have you been bothered by the following: never: Falling or dizzy when standing up, Sexual problems?, Trouble eating well?, Teeth or denture problems?, Problems using the telephone? and Tiredness or fatigue? Have you fallen 2 or more times in the past year?: No Are you afraid of falling?: No Are you a smoker?: no During the past 4 weeks, how many drinks of wine, beer, or other alcoholic beverages did you have?: 2-5 drinks per week Do you exercise for about 20 minutes 3 or more times a week?: yes, all the time Have you been given information to help with the following?: no: Hazards in your house that might hurt you? and no: Keeping track of your medications? How often do you have trouble taking medicines the way you have been told to take them?: I always take medicine as prescribed How confident are you that you can control & manage most of your health problems?: very confident What is your race?: White PHQ-9 Over the last 2 weeks, how often have you been bothered by any of the following problems? 1. Little interest or pleasure in doing things: not at all 2. Feeling down, depressed, or hopeless: not at all 3. Trouble falling or staying asleep, or sleeping too much: not at all 4. Feeling tired or having little energy: not at all 5. Poor appetite or overeating: not at all 6. Feeling bad about yourself - or that you are a failure or have let yourself or your family down: not at all 7. Trouble concentrating on things, such as reading the newspaper or watching television: not at all 8. Moving or speaking so slowly that other people could have noticed. Or the opposite - being so fidgety or restless that you have been moving around a lot more than usual: not at all 9. Thoughts that you would be better off or of hurting yourself in some way: not at all Total score: 0 Depression Screening Interpretation: Negative Depression Screening Done: Yes Source: Developed by Drs. Elliot Maldonado, Shravan Varghese and colleagues, with an educational naseem from [employer]. Thrive Questionnaire Date Thrive assessed: 10/01/23 KURTIS-7 AMB Questionnaire KURTIS-7 Date KURTIS - 7 assessed: 04/08/24 Feeling nervous, anxious, or on edge: 0 = Not at all Not being able to stop or control worryin = Not at all Worrying too much about different things: 0 = Not at all Trouble relaxin = Not at all Being so restless that it is hard to sit still: 0 = Not at all Becoming easily annoyed or irritable: 0 = Not at all Feeling afraid as if something awful might happen: 0 = Not at all Total KURTIS-7 score (0-4 normal; 5-9 mild; 10-14 moderate; 15-21 severe): 0 Source: Developed by Drs. Elliot Maldonado, Shravan Varghese and colleagues, with an educational naseem from [employer]. Review of Systems Const Denies poor appetite and Denies weakness Eyes Denies no additional complaints ENT Reports Normal hearing present, Denies dizziness, Denies nasal congestion, Denies tinnitus and Denies sore throat Card Denies chest pain, Denies syncope, Denies rapid heart rate and Denies dyspnea Resp Denies cough and Denies dyspnea GI Denies change in stool character, Reports constipation, Denies diarrhea, Denies nausea and Denies vomiting Denies dysuria and Denies urinary frequency Neuro Reports Normal hearing present, Denies confusion, Denies dizziness, Denies syncope and Denies weakness Psych Denies confusion Physical Exam Vital Signs: Last Vital Signs Pulse 75 04/08/24 10:28 BP 124/68 04/08/24 10:28 Pulse Ox 98 04/08/24 10:28 Oxygen Delivery Method Room Air 04/08/24 10:28 BMI result Body Mass Index 27.8 Const General: alert and awake; No confusion Orientation/consciousness: No confusion HEENT Head: Yes normocephalic Ears: external ears normal and TM's normal bilaterally Face and sinus: Yes normal facial exam Mouth: moist mucous membranes Throat: Yes tonsils normal Eyes Conjunctivae: conjunctivae normal Pupils: Equal, round and reactive pupils present and Pupil accommodation reflex normal Direct Ophthalmoscopy: normal light reflex Neck Neck: No lymphadenopathy Thyroid: Thyroid normal Chest Chest palpation & inspection: normal inspection of the chest Resp Effort & Inspection: normal respiratory effort and no audible wheezes Auscultation: clear to auscultation bilaterally, no crackles, no wheezes and lung sounds not diminished Cardio Rate: regular rate Rhythm: regular rhythm Peripheral pulses: radial pulses present and dorsalis pedis present GI Palpation (GI): no masses Auscultation: normal bowel sounds and normoactive bowel sounds Rectal Exam - Male: Yes deferred Skin General skin exam: no rashes or lesions noted Rashes: no rashes Neuro General: deep tendon reflexes 2+ bilaterally and No confusion Cranial nerves: Yes Equal, round and reactive pupils present, Yes Midline tongue present, Yes Normal hearing present and Yes Ability to bilaterally elevate shoulders present Cognition (Neuro): normal cognition Gait exam (Neuro): Normal gait present Motor exam (neuro): 5/5 motor strength present throughout Deep tendon reflexes (DTR's): Right brachioradialis reflex intensity grade: 2+, Left brachioradialis reflex intensity grade: 2+, Right patellar reflex intensity grade: 2+ and Left patellar reflex intensity grade: 2+ Extrem General: No edema Assessment & Plan Assessment & Plan (1) Medicare annual wellness visit, subsequent: Code(s): Z00.00 - Encounter for general adult medical examination without abnormal findings (2) Paroxysmal atrial fibrillation: Comment: Status post ablation February 2021 Code(s): I48.0 - Paroxysmal atrial fibrillation (3) Impaired fasting blood sugar: Code(s): R73.01 - Impaired fasting glucose (4) Hypertension: Code(s): I10 - Essential (primary) hypertension Qualifiers: Hypertension type: essential hypertension Qualified Code(s): I10 - Essential (primary) hypertension (5) Hypercholesterolemia: Code(s): E78.00 - Pure hypercholesterolemia, unspecified (6) BPH (benign prostatic hyperplasia): Code(s): N40.0 - Benign prostatic hyperplasia without lower urinary tract symptoms Qualifiers: Lower urinary tract symptom presence: symptoms absent Qualified Code(s): N40.0 - Benign prostatic hyperplasia without lower urinary tract symptoms Plan - Labs: Liver function tests mildly elevated; LDL cholesterol of 69 mg/dL. - Cardiovascular tests: Echocardiogram with normal left ventricular function, EF 58%; stress test normal, EF 60%. - Hematology: Normal blood count parameters, no anemia. - Atrial Fibrillation: Continued management with Xarelto 20 mg daily; maintain regular follow-up with cardiology. - Hypertension: Continue current antihypertensive regimen; valsartan prescription refilled. - Hypercholesterolemia: Continue atorvastatin; maintain target LDL below 70 mg/dL. - Benign Prostatic Hyperplasia: Continue routine surveillance of PSA levels; follow with urology. - Fatty Liver Disease: Monitoring liver enzyme levels; consider liver health and lifestyle modifications to limit potential progression. - Preventive care: Discuss options for RSV and continued COVID vaccination; upda te pneumonia vaccine next year. - Blood work scheduled for six months to monitor effects of anticoagulation therapy. During today's visit, we reviewed the patient's cardiovascular health, with particular attention to his history of atrial fibrillation and hypertension. I emphasized the importance of adhering to anticoagulation and blood pressure management. We discussed the potential benefits of influenza, pneumonia, and RSV vaccinations, with plans to update these as appropriate. The patient expressed concerns about his liver function tests; I assured him that while mildly elevated, previous evaluations showed no significant pathology. I recommended maintaining a healthy diet and increasing water intake to improve overall well- being and reduce nocturnal thirst. The risks associated with blood thinners were explained, highlighting the need to manage minor cuts effectively. The patient expressed understanding of these discussions, and his ongoing engagement in physical activities was encouraged to support cardiovascular health. - Continue all current medications as prescribed; refill valsartan at [facility]. - Adhere to recommended dietary modifications and increase daily water intake to 3-4 bottles to manage nighttime thirst. - Engage in regular physical activity, maintaining gym attendance and daily activities. - Remember to receive upcoming vaccinations as discussed: RSV and COVID-19 updates. - Schedule follow-up blood testing for anticoagulation monitoring in six months. - Report any unusual symptoms, such as increased bruising or bleeding, promptly. - Provide healthcare proxy documentation for medical records when available. Orders: Orders Complete Blood Count Auto Diff 6 Months I48.0 - Paroxysmal atrial fibrillation Comprehensive Met. Panel 6 Months I48.0 - Paroxysmal atrial fibrillation Medications: Refilled rivaroxaban (Xarelto) must administer with evening meal 20 mg PO DAILY 90 tabs 2RF I48.91 - Unspecified atrial fibrillation rivaroxaban (Xarelto) must administer with evening meal 20 mg PO DAILY 90 tabs 2RF I48.91 - Unspecified atrial fibrillation Quality Reporting (2019) Depression/Bipolar (159/160/161/177) PHQ-9: Total score: 0 Coding Level of Care Code Medicare Subsequent (G0439) Diagnoses Medicare annual wellness visit, subsequent Z00.00 Paroxysmal atrial fibrillation I48.0 Impaired fasting blood sugar R73.01 Essential hypertension I10 Hypertension type: essential hypertension Hypercholesterolemia E78.00 Benign prostatic hyperplasia without lower urinary tract symptoms N40.0 Lower urinary tract symptom presence: symptoms absent
== END 2024-04-08 11:44 | disposition home or self-care (01) ==
PROVIDERS: PCP Internal Medicine; Visit Provider Internal Medicine
DX: Z00.00 Encounter for general adult medical examination without abnormal findings (principal); I48.0 Paroxysmal atrial fibrillation; R73.01 Impaired fasting glucose; I10 Essential (primary) hypertension; E78.00 Pure hypercholesterolemia, unspecified; N40.0 Benign prostatic hyperplasia without lower urinary tract symptoms

== ENCOUNTER → 2024-04-08 10:15 | Outpatient (BNVA) | payer MEDICARE, OTHER, SELFPAY | PROVIDERS: PCP Internal Medicine; Visit Provider Internal Medicine ==

== ENCOUNTER 2024-10-08 09:34 | Outpatient (AMB) | payer MEDICARE, OTHER, SELFPAY ==
[2024-10-08 09:35] VITALS: BP 130/80; PULSE 70; O2SAT 94; BMI 28.0
--- NOTE | 2024-10-08 09:35 | MHC.PC.OV ---
Vital Signs 10/08/24 09:35 Height 5 ft 11 in Weight 201 lb BMI 28.0 BP 130/80 Blood Pressure Location Lt brachial Position Sitting Pulse 70 Pulse Source Pulse Oximeter Pulse Oximetry (%) 94 Oxygen Delivery Method Room Air Intake Visit Reasons: A fib Supervisor Felting Required: No Accompanied by: Self / Same As Patient Allergies No Known Allergies Allergy (Mild, Verified 10/08/24 09:36) N/A Medication List - Last Reconciled 10/08/24 by Talat Manning MD amlodipine 10 mg PO DAILY antiarthritic combination no.2 (glucosamine-chondroitin) mg PO ascorbate calcium (vitamin C) 1 g PO DAILY atorvastatin 20 mg PO BEDTIME 90 days flaxseed oil 5 mL miscellaneous ONCE hydrochlorothiazide 12.5 mg PO DAILY 90 days magnesium 200 mg PO DAILY melatonin 3 mg PO BEDTIME PRN metoprolol tartrate 12.5 mg (1/2 x 25 mg) PO BID 90 days multivitamin 1 tab PO DAILY rivaroxaban (Xarelto) 20 mg PO DAILY valsartan 160 mg PO DAILY Tobacco use date assessed: 10/08/24 Fall risk assessment: No Falls in past year Last assessed Fall Risk: 10/08/24 Dental Screening Dental Screen Date: 10/08/24 Did you have a dental visit in the last 12 months?: Yes Did you have a dental problem in the last 6 months where you did not have access to dental care?: No Was dental information given to patient?: Patient has dentist [facility] Medical History Paroxysmal atrial fibrillation Hypercholesterolemia Hypertension Surgical History History of tonsillectomy Burn of leg History of ankle surgery H/O thumb surgery History of shoulder surgery Family History Mother No problems noted. Father No problems noted. Social History Housing: House Alcohol intake: current Comment: 2x a week 2 can at one time Patient Tobacco Use Status: Never used Tobacco e-Cigarette/Vaping Use: Never Used Second Hand Smoke Exposure: No service: No Current occupational status: retired Cognitive needs: No Hearing needs: No Vision needs: Yes Questionnaire PHQ-9 Over the last 2 weeks, how often have you been bothered by any of the following problems? 1. Little interest or pleasure in doing things: not at all 2. Feeling down, depressed, or hopeless: not at all 3. Trouble falling or staying asleep, or sleeping too much: not at all 4. Feeling tired or having little energy: not at all 5. Poor appetite or overeating: not at all 6. Feeling bad about yourself - or that you are a failure or have let yourself or your family down: not at all 7. Trouble concentrating on things, such as reading the newspaper or watching television: not at all 8. Moving or speaking so slowly that other people could have noticed. Or the opposite - being so fidgety or restless that you have been moving around a lot more than usual: not at all 9. Thoughts that you would be better off or of hurting yourself in some way: not at all Total score: 0 Source: Developed by Drs. Elliot Maldonado, Rut Ramos, Shravan Angel and colleagues, with an educational naseem from [employer]. Thrive Questionnaire Date Thrive assessed: 10/08/24 I am a: Patient What is your living situation today?: I have a steady place to live Within the past 12 months, did the food you bought not last and you didn't have the money to get more?: Never true Within the past 12 months, did you worry whether your food would run out before you got money to buy more?: Never true Do you have trouble paying for medicines?: I choose not to answer this question Do you have trouble getting transportation to medical appointments?: No Do you have trouble paying your heating and electricity bill?: No Do you have trouble taking care of your child, family member or friend?: No Do you have trouble with day-to-day activities such as bathing, preparing meals, shopping, managing finances, etc.?: No Are you currently unemployed and looking for a job?: I choose not to answer this question Are you interested in more education?: I choose not to answer this question Please select the resources that you would like help with: None Currently or been in a relationship where the following occur: I choose not to answer THRIVE Score: 0 AUDIT C Alcohol Use Questionnaire (AUDIT-C) 1. How often do you have a drink containing alcohol?: 2-4 times a month 2. How many drinks containing alcohol do you have on a typical day when you are drinking?: 1 or 2 3. How often do you have six or more drinks on one occasion?: Never Total Score: 2 KURTIS-7 AMB Questionnaire KURTIS-7 Date KURTIS - 7 assessed: 10/08/24 Feeling nervous, anxious, or on edge: 0 = Not at all Not being able to stop or control worryin = Not at all Worrying too much about different things: 0 = Not at all Trouble relaxin = Not at all Being so restless that it is hard to sit still: 0 = Not at all Becoming easily annoyed or irritable: 0 = Not at all Feeling afraid as if something awful might happen: 0 = Not at all Total KURTIS-7 score (0-4 normal; 5-9 mild; 10-14 moderate; 15-21 severe): 0 Source: Developed by Drs. Elliot Maldonado, Rut Ramos, Shravan Angel and colleagues, with an educational naseem from [employer]. Physical exam (Primary Care) Vital Signs: Oxygen Delivery Method Room Air 10/08/24 09:35 Tobacco/Smoking Status: Tobacco use Status Tobacco use date assessed 10/01/23 10/01/23 10:01 Patient Tobacco Use Status Never used Tobacco 10/01/23 10:01 e-Cigarette/Vaping Use Never Used 10/01/23 10:01 Thrive Assessment: Date of Thrive Assessment Date Thrive assessed 10/02/24 10/02/24 19:38 Currently or been in a relationship where the following occur: I choose not to answer Const General: alert; No acute distress Eyes Conjunctivae: conjunctivae normal Resp Auscultation: clear to auscultation bilaterally Cardio Rate: regular rate Rhythm: regular rhythm GI Inspection: Yes normal to inspection Extrem General: Yes normal to inspection and No edema Coding Level of Care Code Est Pt Level 4 (13120) Complex EM visit Add On G2211 Diagnoses Essential hypertension I10 Hypertension type: essential hypertension Hypercholesterolemia E78.00 Paroxysmal atrial fibrillation I48.0 Impaired fasting blood sugar R73.01 Assessment & Plan Assessment & Plan (1) Hypertension: Code(s): I10 - Essential (primary) hypertension Category: Medical Qualifiers: Hypertension type: essential hypertension Qualified Code(s): I10 - Essential (primary) hypertension Plan: Continue with blood pressure medication. Decrease salt intake and exercise patient is taking amlodipine 10 mg once a day hydrochlorothiazide 12.5 mg once a day metoprolol tartrate 12.5 mg twice a day and valsartan 160 mg once a day (2) Hypercholesterolemia: Code(s): E78.00 - Pure hypercholesterolemia, unspecified Category: Medical Plan: Avoid fried foods, chicken skin, eggs, butter margarine, pastries and meat. Be it pork or beef they have a lot of cholesterol LDL goal of less than 130 and triglyceride of less than 150 on atorvastatin 20 mg once a day March 2024 last blood work. (3) Paroxysmal atrial fibrillation: Comment: Status post ablation February 2021 Code(s): I48.0 - Paroxysmal atrial fibrillation Category: Medical Plan: Continuing with anticoagulation twice a day year blood work requested for renal function. Minimal concern as I have not been informed that the blood thinner being used Xarelto instead of Eliquis. Nevertheless retesting of renal function advised. (4) Impaired fasting blood sugar: Code(s): R73.01 - Impaired fasting glucose Category: Medical Plan: Decrease the amount of carbohydrate intake, pasta, bread, rice and potatoes are all sugar and that is aside from all the sweet stuff, remember that fruits are good but they are Sweet also. Plan History of Present Illness The patient is a 69-year-old male presenting with a follow-up visit for the management of his chronic conditions, primarily essential hypertension, hypercholesterolemia, and a history of atrial fibrillation. He has a notable medical history, including transient ischemic attacks and impaired glucose tolerance. During the visit, there were no acute concerns raised regarding changes in his conditions, and the current management plan appears stable, with his blood pressure reflected at 130/80 mmHg and weight remaining consistent. The patient has a comprehensive medication regimen with amlodipine, hydrochlorothiazide, metoprolol tartrate, valsartan for hypertension management, atorvastatin for cholesterol control, and Xarelto for anticoagulation due to atrial fibrillation. Recent lab work indicated stable cholesterol levels and a minor concern regarding liver function which will be monitored. His glucose levels have remained within normal limits on recent checks from October and March last year. Preventative measures and follow-up screenings are up to date, ensuring appropriate monitoring and timely evaluations, including a cardio stress test conducted in January last and scheduled appointments with cardiology and urology. The patient generally reports feeling well with adequate exercise and compliance with medical advice. Health Maintenance - Vaccinations up to date, including shingles and tetanus. - Previous pneumonia vaccination administered in 2020 with a follow-up scheduled next year. - Colon cancer screening last conducted in 2017. - Blood work in March 2024 showed normal renal function and cholesterol levels; elevated liver function tests noted. - Cardiovascular exercise: attends the gym three times a week. - Follow-ups with cardiology and urology specialists scheduled for continued monitoring. Social History - Engages in regular cardiovascular exercise, attending the gym three times a week. - Reports an active lifestyle with no significant barriers to daily activities. Review of Systems - Cardiovascular: Denies chest pain. - Respiratory: Denies shortness of breath and cough. - Neurological: Denies visual changes or significant complaints. - Musculoskeletal: Reports minor discomfort with a thumbnail impacting manual dexterity but self-managed. Physical Exam - Vitals- Blood pressure recorded at 130/80 mmHg. - General- Overweight but no acute distress observed. Results - Labs: Blood work in March 2024 showed normal blood count, normal electrolytes, and normal renal function. Noted elevated liver function test. - Tests: Last cardiolite stress test completed in January last with normal findings. Plan I reviewed the management plan for the patient's chronic health conditions, incorporating his current medication regimen that stabilizes hypertension, cholesterol levels, and atrial fibrillation. Routine assessment schedules, including blood work every six months for renal function due to anticoagulation therapy, were reiterated. Recent normal renal function but an elevated liver function test observed will necessitate continued monitoring. Prostate health is overseen with a scheduled urology review, and cholesterol targets reaffirmed sustaining atorvastatin therapy. I encouraged regular physical activity, which the patient fulfills, continuing to visit the gym three times weekly. Vaccination records ensure preventive maintenance, with foresight to a future pneumonia vaccine. His nutrition and weight remain points to be sustained, with no pressing alterations advised. 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 Patient was informed and verbally consented to the use of an ambient scribe for clinic note documentation during this visit. Discussion Notes During the visit, I discussed the need to maintain strict adherence to the current medication and management regimen to manage the patient's chronic conditions effectively. The benefits of each prescribed medication, such as the antihypertensives and blood thinner, were clarified to maintain cardiovascular protection and reduce risks of stroke, with potential side effects acknowledged. Monitoring plans, including the necessity of regular lab work for renal and liver function tests, were emphasized to avoid and preempt any medication-associated complications. Additionally, the importance of disciplined cholesterol control was stressed with atorvastatin use. I confirmed the patient's understanding that regular exercise and nutrition form the basis of sustaining health together with medical guidance. Assurance was given regarding his stable PSA levels and the timing for future evaluations aligned with convenience but precision in proactive care. I highlighted the upcoming appointments with the college football coach and urologist for thorough care continuity, addressing queries about urological health in particular. Clear instructions were communicated to contact in the event of symptom exacerbation or emerging concerns that deviate from established clinical patterns. Patient Instructions - Take prescribed medications as directed and ensure regular refills. - Schedule blood work every six months to monitor renal and liver function. - Maintain regular exercise routine and a balanced diet to manage weight. - Attend follow-up visits with your college football coach in December and urologist as scheduled. - Keep vaccinations up to date, with pneumonia booster planned for next year. - Monitor for any unusual symptoms or changes, and report promptly. - Ensure open lines of communication for any health-related questions or changes. Orders: Orders Hemoglobin A1c Today R73.01 - Impaired fasting glucose Medications: New rivaroxaban (Xarelto) must administer with evening meal 20 mg PO DAILY 90 tabs 0RF R73.01 - Impaired fasting glucose Discontinued apixaban (Eliquis) Discontinued Reason: Doctor's Order 5 mg PO BID 60 tabs 1RF
--- OUTSIDE RECORDS SUMMARY | 2024-10-08 10:38 | XMS_ITS | Clinical Summary ---
Author Organization [facility] Address [address] [place] [id number] Care Team Providers Care Slip Tender Name Role Phone Jun Carter MD Primary Care Provider [phone] Surgical History Surgery Date Site/Laterality Comments TONSILLECTOMY PROCEDURE:TONSILLECTOMY FOOT SURGERY Right PROCEDURE:FOOT SURGERY FOOT SURGERY Left PROCEDURE:FOOT SURGERY OTHER SURGICAL HISTORY 11/05/2017 Left PROCEDURE:PERCUTANEOUS PINNING METACARPAL FRACTURE;COMMENT:Procedure: PERCUTANEOUS PINNING METACARPAL FRACTURE; Surgeon: Ramiro Cespedes MD; Location: [facility]; Service: Orthopedics; Laterality: Left; Medical History Medical History Date Comments Hypertension DX:Hypertension Hyperlipidemia DX:Hyperlipidemi a Social History Tobacco Use Types Packs/Day Years Used Date Smoking Tobacco: Never Smokeless Tobacco: Never Alcohol Use Standard Drinks/Week Comments Yes 2 (1 standard drink = 0.6 oz pur e alcohol) Sex and Gender Information Value Date Recorded Sex Assigned at Not on file Legal Sex Male 11:43 AM EST Gender Identity Not on file Sexual Orientation Not on file Obstetrics History Plan of Treatment Health Maintenance Due Date Last Done Comments DTaP,Tdap,and Td Vaccines (1 - Tdap) 1973 Pneumococcal Vaccine: 50+ Ye ars (1 of 1 - PCV) 2004 Zoster Vaccines (1 of 2) 2004 COVID-19 Vaccine ( - 2023-2 5 season) 2024 Influenza Vaccine (Season Ended) 2025 RSV Immunization Adult Patie nts (1 - 1-dose 75+ series) 2029 HIB Vaccines Aged Out No longer eligi ble based on patient's age to complete this topic HPV Vaccines Aged Out No longer eligi ble based on patient's age to complete this topic Hepatitis A Vaccines Aged Out No long er eligible based on patient's age to complete this topic Hepatitis B Vaccines Aged Out No long er eligible based on patient's age to complete this topic IPV Vaccines Aged Out No longer eligi ble based on patient's age to complete this topic MMR Vaccines Aged Out No longer eligi ble based on patient's age to complete this topic Meningococcal ACWY Vaccine Aged Out N o longer eligible based on patient's age to complete this topic Meningococcal B Vaccine Aged Out No l onger eligible based on patient's age to complete this topic RSV Immunization Patients Un jolanat 20 months Aged Out No longer eligible b ased on patient's age to complete this topic Varicella Vaccines Aged Out No longer eligible based on patient's age to complete this topic Care Teams Slip Tender Relationship Specialty Start Date End Date Jun Carter MD [address] [place] [address] Dr [address] GRETCHEN De La Paz PCP - General Internal Medicine 11/04/17
== END 2024-10-08 09:54 | disposition home or self-care (01) ==
LOC: HO.HMCH 09:34
PROVIDERS: PCP Internal Medicine; Visit Provider Internal Medicine
DX: I10 Essential (primary) hypertension (principal); E78.00 Pure hypercholesterolemia, unspecified; I48.0 Paroxysmal atrial fibrillation; R73.01 Impaired fasting glucose

== ENCOUNTER → 2024-10-08 09:34 | Outpatient (BNVA) | payer MEDICARE, OTHER, SELFPAY | PROVIDERS: PCP Internal Medicine; Visit Provider Internal Medicine | DX: I10 Essential (primary) hypertension (principal); E78.00 Pure hypercholesterolemia, unspecified; I48.0 Paroxysmal atrial fibrillation; R73.01 Impaired fasting glucose | CPT/HCPCS: 99212 ==

== ENCOUNTER 2024-10-10 08:18 | Outpatient (REF) | payer MEDICARE, OTHER, SELFPAY ==
[2024-10-10 08:29] LABS: MANUAL DIFF FLAG NO
[2024-10-10 08:53] LABS: Basophils Percent Auto 0.8 % (0-2); Eosinophils Absolute Auto 0.2 X10*3/uL (0.0-0.4); Eosinophils Percent Auto 3.2 % (0-4); Hematocrit 44.5 % (42.0-52.0); Hemoglobin 14.8 g/dl (14.0-18.0); Imm Gran Abs Auto 0.01 X10*3/uL (0.00-0.03); Imm Gran Pct Auto 0.2 % (0.0-0.4); Lymphocytes Absolute Auto 1.4 X10*3/uL (1.2-4.9); Mean Corpuscular HGB Conc 33.3 g/dl (31.0-36.0); Mean Corpuscular Hemoglobin 27.7 pg (27.0-33.0); Mean Corpuscular Volume 83.3 fL (80.0-98.0); Monocytes Absolute Auto 0.8 X10*3/uL (0.1-1.2); Neutrophils Absolute Auto 2.6 x10*3/uL (2.0-8.3); Neutrophils Percent Auto 52.8 % (45-73); Platelet Count 269 X10*3/uL (160-400); Red Blood Count 5.34 X10*6/uL (4.60-5.80); Red Cell Distribution Width 13.1 % (11.0-16.0)
[2024-10-10 08:59] LABS: Estimated Average Glucose 117 mg/dL; Hemoglobin A1C 151.2781 umol/L; Hemoglobin A1c % 5.7 % (<6.0); Total Hemoglobin (HGBA1C) 3878.5288 umol/L
[2024-10-10 09:33] LABS: Alanine Aminotransferase 46 U/L (0-40); Alkaline Phosphatase 86 U/L (39-117); Anion Gap 10 (12-20); Aspartate Amino Transferase 41 U/L (5-37); Bilirubin Total 1.5 mg/dL (0.0-1.0); Blood Urea Nitrogen 19 mg/dL (9-16); Calcium 8.9 mg/dL (8.4-10.2); Carbon Dioxide 26 mmol/L (22-29); Chloride 108 mmol/L (96-108); Estimated Glomerular Filt Rate > 60; Glucose Random 94 mg/dL (60-115); Potassium 3.9 mmol/L (3.3-5.1); Sodium 140 mmol/L (135-145); Total Protein 6.9 g/dL (6.5-8.0)
== END 2024-10-10 08:19 | disposition home or self-care (01) ==
LOC: HO.LAB 08:18
PROVIDERS: PCP Internal Medicine; Visit Provider Internal Medicine
DX: I48.0 Paroxysmal atrial fibrillation (principal); R73.01 Impaired fasting glucose
CPT/HCPCS: 36415; 80053; 83036; 85025

== ENCOUNTER 2024-12-10 09:36 | Outpatient (AMB) | payer MEDICARE, OTHER, SELFPAY ==
[2024-12-10 09:41] VITALS: BP 110/70; PULSE 82; BMI 27.7
--- NOTE | 2024-12-10 09:41 | MHC.OFFVIS ---
Vital Signs 12/10/24 09:41 Height 5 ft 11 in Weight 198 lb 6.656 oz BMI 27.7 BP 110/70 Blood Pressure Location Lt brachial Position Sitting Pulse 82 Pulse Source Monitor Intake Visit Reasons: 1 yr follow up Intake Note: 1 year follow up , Pt complains of Chest pain with Activity. Credit Representative Required: No Allergies No Known Allergies Allergy (Mild, Verified 10/08/24 09:36) N/A Medication List - Last Reconciled 12/10/24 by Faisal Brown MD amlodipine 10 mg PO DAILY antiarthritic combination no.2 (glucosamine-chondroitin) mg PO ascorbate calcium (vitamin C) 1 g PO DAILY atorvastatin 20 mg PO BEDTIME 90 days flaxseed oil 5 mL miscellaneous ONCE hydrochlorothiazide 12.5 mg PO DAILY 90 days magnesium 200 mg PO DAILY melatonin 3 mg PO BEDTIME PRN metoprolol tartrate 12.5 mg (1/2 x 25 mg) PO BID 90 days multivitamin 1 tab PO DAILY rivaroxaban (Xarelto) 20 mg PO DAILY valsartan 160 mg PO DAILY HPI Comments Details: Tommy comes for follow-up. He said when he is pushing on a stationary bike he does get left-sided chest pressure. Then he has to ease off till the symptoms and then he can continue to bike and symptoms do not recur. He has not had any similar symptoms at rest. Has not had progressive symptoms. He has been taking all his medications. He has not had any prolonged irregular heartbeat. No lightheadedness, syncope. No heart failure symptoms with no orthopnea, PND, leg edema. [facility] Medical History Paroxysmal atrial fibrillation Hypercholesterolemia Hypertension Surgical History History of tonsillectomy Burn of leg History of ankle surgery H/O thumb surgery History of shoulder surgery Family History Mother No problems noted. Father No problems noted. Social History Housing: House Alcohol intake: current Comment: 2x a week 2 can at one time Patient Tobacco Use Status: Never used Tobacco e-Cigarette/Vaping Use: Never Used Second Hand Smoke Exposure: No service: No Current occupational status: retired Cognitive needs: No Hearing needs: No Vision needs: Yes Review of Systems Const Denies as per HPI, Denies no additional complaints, Denies anorexia, Denies body aches, Reports chills, Denies daytime sleepiness, Denies difficulty sleeping, Denies excessive sweating, Reports fever(s), Denies headache(s), Denies increased appetite, Denies lethargy, Denies malaise, Denies night sweats, Denies poor appetite, Denies stops breathing during sleep, Denies weakness, Reports weight gain, Reports weight loss and Denies other Eyes Denies as per HPI, Denies no additional complaints, Denies blind spots, Denies blurry vision, Denies exophthalmos, Denies change in vision, Denies decreased night vision, Denies diplopia, Denies eye discharge, Denies dry eyes, Denies floaters, Denies irritation, Denies itchy eyes, Denies loss of peripheral vision, Denies loss of vision, Denies other visual disturbances, Denies eye pain, Denies requires corrective lenses, Denies seeing flashes, Denies photophobia, Denies spots in vision, Denies tunnel vision and Denies other ENT Denies headache(s) Card Reports chest pain Neuro Denies headache(s), Denies loss of vision and Denies weakness Endo Denies excessive sweating Aller/Immun Denies itchy eyes Physical Exam Vital Signs: Last Vital Signs Pulse 82 12/10/24 09:41 BP 110/70 12/10/24 09:41 BMI result Body Mass Index 27.7 Const General: cooperative, comfortable, no acute distress, well developed, alert, awake and Physically active Nutritional Appearance: well nourished and overweight Orientation/consciousness: patient oriented x3 Limitations: no limitations HEENT Head: Yes normocephalic and Yes atraumatic Eyes Direct Ophthalmoscopy: No photophobia Neck Neck: Yes trachea midline, Yes supple and Yes no JVD Resp Effort & Inspection: normal respiratory effort Auscultation: clear to auscultation bilaterally Cardio Jugular venous distension: no JVD Palpation: normal PMI Rate: regular rate Rhythm: regular rhythm Heart sounds: S1 normal heart sound present, S2 normal heart sound present, no click, no gallops, no murmurs and no rubs GI Auscultation: normal bowel sounds Skin General skin exam: no rashes or lesions noted Neuro General: patient oriented x3 and no focal motor deficits Extrem General: Yes no clubbing, cyanosis or edema Office Procedures EKG Details: EKG shows normal sinus rhythm with normal EKG [id number], Complete Assessment & Plan Assessment & Plan (1) Exertional chest pain: Code(s): R07.9 - Chest pain, unspecified Category: Medical Plan: Patient continues to have exertional chest pain when he is pushing on the stationary bike. This is concerning given his age and risk factors. His myocardial perfusion imaging was within normal limits although less likelihood of coronary disease I would like to rule out significant coronary artery disease with a coronary CTA. The risks, benefits and information that will require from coronary CTA was discussed with him. He is understanding agreeable to pursue with it. Advised to seek emergency care for progressive symptoms or symptoms at rest. (2) Paroxysmal atrial fibrillation: Comment: Status post ablation February 2021 Code(s): I48.0 - Paroxysmal atrial fibrillation Category: Medical Plan: Paroxysmal atrial fibrillation which has remained suppressed and has no recurrent episodes. Continue to avoid stimulants. Stress mitigation strategies was discussed. Continue low-dose metoprolol therapy. No indication for antiarrhythmic drug therapy at this point time. Discussed with him about risk of thromboembolic complication given his prior TIA and would continue with Xarelto. Semi annual renal function test should be pursued. (3) Hypertension: Code(s): I10 - Essential (primary) hypertension Category: Medical Qualifiers: Hypertension type: essential hypertension Qualified Code(s): I10 - Essential (primary) hypertension Plan: Hypertension which is currently well optimized advised to monitor blood pressure at home maintain a log. Goal blood pressure less than 130/84. Low-salt diet was discussed. Continue current therapy. Continue statin therapy with well optimized LDL this point time. Will follow up in the clinic in 1 year's time, sooner p.r.n.. Thank you for allowing me to partake in his care Coding Level of Care Code Est Pt Level 4 (49197) Complex EM visit Add On G2211 Diagnoses Exertional chest pain R07.9 Paroxysmal atrial fibrillation I48.0 Essential hypertension I10 Hypertension type: essential hypertension CPT Codes EKG - CPT: 09270-[id number], Complete ([id number])
--- OUTSIDE RECORDS SUMMARY | 2024-12-10 10:04 | XMS_ITS | Clinical Summary ---
Author Organization [facility] Address [address] [place] [address] Care Team Providers Care Director Physical Name Role Phone Jun Carter MD Primary Care Provider [phone] Surgical History Surgery Date Site/Laterality Comments TONSILLECTOMY PROCEDURE:TONSILLECTOMY FOOT SURGERY Right PROCEDURE:FOOT SURGERY FOOT SURGERY Left PROCEDURE:FOOT SURGERY OTHER SURGICAL HISTORY 11/05/2017 Left PROCEDURE:PERCUTANEOUS PINNING METACARPAL FRACTURE;COMMENT:Procedure: PERCUTANEOUS PINNING METACARPAL FRACTURE; Surgeon: Ramiro Cespedes MD; Location: [facility]; Service: Orthopedics; Laterality: Left; Medical History [...] Vaccine ( - 2023-2 5 season) 2024 Depression Screening 05/06/2024 Influenza Vaccine (#1) 2025 RSV Immunization Adult Patie nts (1 [...] complete this topic RSV Immunization Patients Un jolanta 20 months Aged Out No longer eligible b ased on patient's age to complete this topic Varicella Vaccines Aged Out No longer eligible based on patient's age to complete this topic Care Teams Director Physical Relationship Specialty Start Date End Date Jun Carter MD [address] [place] [address] [address] [place], [place] PCP - General Internal Medicine 11/04/17
--- OUTSIDE RECORDS SUMMARY | 2024-12-10 10:04 | XMS_ITS | Clinical Summary ---
Author Organization [facility] Address [address] [place] [address] Care Team Providers Care Molder Shoulder Pad Name Role Phone Jun Carter MD Primary Care Provider [phone] Allergies No known active allergies Medications Medication Sig Dispensed Refills Start Date End Date Status amLODIPine (NORVASC) tablet 10 mg Take 1 tablet by mouth daily. 0 10/12/2017 Active hydrochlorothiazide (HYDRODIURIL) tablet 25 mg Take 1 tablet by mouth daily. 0 10/12/2017 Active simvastatin (ZOCOR) tablet 40 mg Take 1 tablet by mouth daily. 0 10/12/2017 Active valsartan (DIOVAN) tablet 160 mg Take 1 tablet by mouth daily. 0 10/12/2017 Active acetaminophen (TYLENOL) 325 MG tablet Take 650 mg by mouth every 6 (six) hours as needed for pain. 0 Active Social History Tobacco Use Types Packs/Day Years Used Date Smoking Tobacco: Never Smokeless Tobacco: Never Tobacco Cessation:Counseling Given: No Alcohol Use Standard Drinks/Week Comments Yes 2 (1 standard drink = 0.6 oz pur e alcohol) occasional Sex and Gender Information Value Date Recorded Sex Assigned at Not on file Gender Identity Not on file Sexual Orientation Not on file Last Filed Vital Signs Vital Sign Reading Time Taken Comments Blood Pressure 139/93 11/05/2017 1:25 PM EDT Pulse 88 11/05/2017 1:25 PM EDT Temperature 36.4 C (97.6 F) 11/05/2017 1:00 PM EDT Respiratory Rate 19 11/05/2017 1:25 PM EDT Oxygen Saturation 96% 11/05/2017 1:25 PM EDT Inhaled Oxygen Concentration - - Weight 96.2 kg (212 lb) 11/05/2017 10:43 AM EDT Height 180.3 cm (5' 11 ) 11/05/2017 10:43 AM EDT Body Mass Index 29.57 11/05/2017 10:43 AM EDT Plan of Treatment Not on file Care Teams Molder Shoulder Pad Relationship Specialty Start Date End Date Jun Carter MD [address] [place] [address] Dr [address] [place] [address] PCP - General Internal Medicine 11/04/17
== END 2024-12-10 10:10 | disposition home or self-care (01) ==
LOC: HO.HCS 09:37
PROVIDERS: PCP Internal Medicine; Visit Provider Internal Medicine Cardiovascular Disease
DX: R07.9 Chest pain, unspecified (principal); I48.0 Paroxysmal atrial fibrillation; I10 Essential (primary) hypertension
CPT/HCPCS: 93010; 99214; G2211

== ENCOUNTER → 2024-12-10 09:36 | Outpatient (BNVA) | payer MEDICARE, OTHER, SELFPAY | PROVIDERS: PCP Internal Medicine; Visit Provider Internal Medicine Cardiovascular Disease | DX: R07.89 Other chest pain (principal); I48.0 Paroxysmal atrial fibrillation; I10 Essential (primary) hypertension | CPT/HCPCS: 93005; 99212 ==

== ENCOUNTER 2025-01-16 09:25 | Outpatient (REF) | payer MEDICARE, OTHER, SELFPAY ==
--- OUTSIDE RECORDS SUMMARY | 2025-01-16 09:29 | XMS_ITS | Clinical Summary ---
Author Organization [facility] Address [address] [place] [address] Care Team Providers Care Ore Miner Blasting Name Role Phone Jun Carter MD Primary Care Provider [phone] Allergies No known active allergies Medications Medication [...] of Treatment Not on file Care Teams Ore Miner Blasting Relationship Specialty Start Date End Date Jun Carter MD [address] [place] [address] Dr [address] [place] [address] PCP - General Internal Medicine 11/04/17
--- OUTSIDE RECORDS SUMMARY | 2025-01-16 09:29 | XMS_ITS | Clinical Summary ---
Author Organization [facility] Address [address] [place] [id number] Care Team Providers Care Safety Net Maker Name Role Phone Jun Carter MD Primary Care Provider [phone] Surgical History Surgery Date Site/Laterality Comments TONSILLECTOMY PROCEDURE:TONSILLECTOMY FOOT SURGERY Right PROCEDURE:FOOT SURGERY FOOT SURGERY Left PROCEDURE:FOOT SURGERY OTHER SURGICAL HISTORY 11/05/2017 Left PROCEDURE:PERCUTANEOUS PINNING METACARPAL FRACTURE;COMMENT:Procedure: PERCUTANEOUS PINNING METACARPAL FRACTURE; Surgeon: Ramiro Cespedes MD; Location: [facility]; Service: Orthopedics; Laterality: Left; Medical History [...] 2004 Zoster Vaccines (1 of 2) 2004 Depression Screening 05/06/2024 COVID-19 Vaccine (1 - 2023-2 5 season) 2025 Influenza Vaccine (#1) 2025 RSV Immunization Adult [...] age to complete this topic Care Teams Safety Net Maker Relationship Specialty Start Date End Date Jun Carter MD [address] [place] [address] [address] [place], [place] PCP - General Internal Medicine 11/04/17
[2025-01-16 10:39] LABS: Prostate Specific Antigen 1.96 ng/mL (<0.05-4.0)
== END 2025-01-16 09:26 | disposition home or self-care (01) ==
LOC: HO.LAB 09:25
PROVIDERS: PCP Internal Medicine; Visit Provider Nurse Practitioner Family
DX: Z12.5 Encounter for screening for malignant neoplasm of prostate (principal); N40.0 Benign prostatic hyperplasia without lower urinary tract symptoms
CPT/HCPCS: 36415; 84153

== ENCOUNTER 2025-01-21 15:03 | Outpatient (AMB) | payer MEDICARE, OTHER, SELFPAY ==
--- NOTE | 2025-01-21 15:08 | MHC.OFFVIS ---
Intake Visit Reasons: 1 year/PSA/PVR Intake Note: Patient is present for 1Y/PSA/PVR Urology Medication:NONE Antibiotic Allergy:NONE Blood Thinner:RIVARAXABAN TODAY'S PVR:129ML'S Production Manufacturing Worker Required: No Allergies No Known Allergies Allergy (Mild, Verified 01/22/25 18:16) N/A Medication List - Last Reconciled 01/22/25 by Beatriz Escoto, LIVESTOCK INSPECTOR-BC amlodipine 10 mg PO DAILY antiarthritic combination no.2 (glucosamine-chondroitin) mg PO ascorbate calcium (vitamin C) 1 g PO DAILY atorvastatin 20 mg PO BEDTIME 90 days flaxseed oil 5 mL miscellaneous ONCE hydrochlorothiazide 12.5 mg PO DAILY 90 days magnesium 200 mg PO DAILY melatonin 3 mg PO BEDTIME PRN metoprolol tartrate 12.5 mg (1/2 x 25 mg) PO BID 90 days multivitamin 1 tab PO DAILY rivaroxaban (Xarelto) 20 mg PO DAILY valsartan 160 mg PO DAILY HPI Comments Details: Tommy is a plesant 69 year old male patient of Dr. Manning. He has a PMH of TIA, paroxysmal AFib, cognitive impairment, hypercholesteremia and hypertension. He presents to the office today for follow-up. In discussion with the patient today he reports since his last office visit here approximately 1 year ago he has had no bothersome urinary issues or concerns. He does report noting episodes of urinary frequency and nocturia however did not find them bothersome and feels he continues to self manage. Recent PSA results reviewed with the patient today as noted and trended below. In office urinalysis results reviewed with the patient today. PVR 129 mL. PSA's are as follows: 04/25 1.4, 03/27 1.5, 01/26 1.7, 01/27 1.6, 01/28 2.0 Workup has included bladder ultrasound 09/25 which demonstrated the bladder is well distended and normal. Bilateral ureteral jets are demonstrated. Prevoid bladder volume is 493.1 mL. Postvoid bladder volume is 184.4 mL. Prostate volume is 55.5 mL. Patient otherwise denies urinary urgency, incontinence, hematuria, dysuria, foul smelling urine, flank pain, fever, and or chills. We discussed slight increase in PVR during today's office visit and incomplete bladder emptying. We also discussed previous bladder ultrasound noted enlarged prostate. We did discussed further treatment options and risks and benefits of these treatment options. All questions were answered. He otherwise offers no other issues or concerns at this time. [facility] Medical History Paroxysmal atrial fibrillation Hypercholesterolemia Hypertension Surgical History History of tonsillectomy Burn of leg History of ankle surgery H/O thumb surgery History of shoulder surgery Family History Mother No problems noted. Father No problems noted. Social History Housing: House Alcohol intake: current Comment: 2x a week 2 can at one time Patient Tobacco Use Status: Never used Tobacco e-Cigarette/Vaping Use: Never Used Second Hand Smoke Exposure: No service: No Current occupational status: retired Cognitive needs: No Hearing needs: No Vision needs: Yes Review of Systems Const Reports as per HPI Eyes Reports no additional complaints ENT Reports no additional complaints Card Reports as per HPI Resp Reports no additional complaints GI Reports no additional complaints Reports as per HPI Musc Reports no additional complaints Neuro Reports as per HPI Psych Reports no additional complaints Endo Reports no additional complaints Dima/Lymph Reports lymphadenopathy Aller/Immun Reports no additional complaints Physical Exam Const General: cooperative, healthy appearing, comfortable, no acute distress, well developed, alert and awake Orientation/consciousness: patient oriented x3 HEENT Head: Yes normal to inspection, Yes normocephalic and Yes atraumatic Ears: hearing grossly normal bilaterally Eyes General: appearance normal, both eyes and all related structures Neck Neck: Yes normal visual inspection and Yes trachea midline Chest Chest palpation & inspection: normal inspection of the chest Resp Effort & Inspection: normal respiratory effort and able to speak in complete sentences Cardio Rate: regular rate GI Inspection: Yes normal to inspection General: Yes no CVA tenderness Back/Spine/Pelvis Back: no CVA tenderness Skin General skin exam: no rashes or lesions noted Neuro General: patient oriented x3 Extrem General: Yes normal to inspection Psych Appearance: grossly normal and well kempt Mental Status: mental status grossly normal Speech and movement: Normal speech and movement present and Clear speech present Affect: normal affect Attitude: cooperative Thought process: Normal thought process present Thought content: Normal thought content present Insight: Good insight present (Psych) Judgement: Good judgement present (Psych) Office Procedures Post Void Residual Post Residual Void Post Void Residual (PVR): 129 [id number] Void Residual by ultrasound Results AMB Urinalysis, Automated UA Leukoctes 0 Sammy/uL Last Edit by Alem Trujillo CCM on 01/21/25 15:26 UA Nitrite Negative Last Edit by Alem Trujillo [facility] on 01/21/25 15:26 UA Urobilinogen 0.2 mg/dL Last Edit by Alem Trujillo [facility] on 01/21/25 15:26 UA Protein 0 mg/dL Last Edit by Alem Trujillo [facility] on 01/21/25 15:26 UA pH 6.0 Last Edit by Alem Trujillo [facility] on 01/21/25 15:26 UA Blood 0 Dickson/uL Last Edit by Alem Trujillo [facility] on 01/21/25 15:26 UA Specific [place] 1.005 Last Edit by Alem Trujillo [facility] on 01/21/25 15:26 UA Ketone Negative Last Edit by Alem Trujillo [facility] on 01/21/25 15:26 UA Bilirubin 0 mg/dL Last Edit by Alem Trujillo [facility] on 01/21/25 15:26 UA Glucose 0 mg/dL Last Edit by Alem Trujillo [facility] on 01/21/25 15:26 Results Reviewed Results Reviewed: Laboratory Last Values Urine pH (Auto) 6.0 01/21/25 15:25 Specific [place] (Auto) 1.005 01/21/25 15:25 Urine Protein (Auto) 0 mg/dL 01/21/25 15:25 Glucose (UA)(Auto) 0 mg/dL 01/21/25 15:25 Urine Ketones (Auto) Negative 01/21/25 15: Urine Blood (Auto) 0 Dickson/uL 01/21/25 15:25 Urine Nitrite (Auto) Negative 01/21/25 15:25 Urine Bilirubin (Auto) 0 mg/dL 01/21/25 15: Urine Urobilinogen (Auto) 0.2 mg/dL 01/21/25 15:25 Leukocyte Esterase (Auto) 0 Sammy/uL 01/21/25 15:25 Assessment & Plan Assessment & Plan (1) Frequency of micturition: Code(s): R35.0 - Frequency of micturition Category: Medical (2) Nocturia: Code(s): R35.1 - Nocturia Category: Medical (3) BPH (benign prostatic hyperplasia): Code(s): N40.0 - Benign prostatic hyperplasia without lower urinary tract symptoms Category: Medical Qualifiers: Lower urinary tract symptom presence: symptoms absent Qualified Code(s): N40.0 - Benign prostatic hyperplasia without lower urinary tract symptoms (4) Incomplete bladder emptying: Code(s): R33.9 - Retention of urine, unspecified Category: Medical Plan In office urinalysis results reviewed with the patient today; as noted above PVR 129mL. Patient currently denies any bothersome urinary issues or concerns. He is happy with his current voiding parameters. Recent PSA results reviewed with the patient today. We did discussed enlarged prostate and further treatment options and risks and benefits of these treatment options. We also discussed incomplete bladder emptying. All questions were answered. We did discussed attempting to double void to assist with bladder emptying. Will continue with surveillance monitoring at this time. Will obtain PSA in 1 year. Follow-up in 1 year with PSA and PVR; or sooner with any questions, concerns, and or issues. Orders: Orders AMB Urinalysis Automated 01/21/25 Z13.9 - Encounter for screening, unspecified Prostate Specific Antigen 1 Year N40.0 - Benign prostatic hyperplasia without lower urinary tract symptoms Patient Instructions: The patient had an opportunity to ask questions regarding the treatment plan. All questions were answered. Physical exam, labs, and imaging were discussed and reviewed in detail. As well as risks, benefits, and discussion of treatment choices. No major barriers to understanding were identified. The patient expressed understanding and agreement with the above treatment plan. The patient was made aware they should contact our office by phone for worsening of their current condition, the appearance of new symptoms, or with any questions or concerns. Compliance is encouraged with any medications and follow up testing that is ordered. It is a privilege to be allowed the opportunity to participate in? your urological care.? Again, if you have any questions or concerns If you have any questions or concerns please do not hesitate to contact me. The office is [phone]. This note is constructed using voice recognition software. While every effort has been made to ensure accuracy special services director errors may have been included. Yours sincerely, DELTA Granados-FLORIN Coding Level of Care Code Est Pt Level 3 (19775) Complex EM visit Add On G2211 Diagnoses Frequency of micturition R35.0 Nocturia R35.1 Benign prostatic hyperplasia without lower urinary tract symptoms N40.0 Lower urinary tract symptom presence: symptoms absent Incomplete bladder emptying R33.9 CPT Codes Post Residual Void - PVR CPT Code: 19093-[id number] Void Residual by ultrasound ([id number])
--- OUTSIDE RECORDS SUMMARY | 2025-01-21 16:39 | XMS_ITS | Clinical Summary ---
Author Organization [facility] Address [address] [place] [phone] Care Team Providers Care Box Car Checker Name Role Phone Jun Carter MD Primary Care Provider [phone] Surgical History Surgery Date Site/Laterality Comments TONSILLECTOMY PROCEDURE:TONSILLECTOMY FOOT SURGERY Right PROCEDURE:FOOT SURGERY FOOT SURGERY Left PROCEDURE:FOOT SURGERY OTHER SURGICAL HISTORY 11/05/2017 Left PROCEDURE:PERCUTANEOUS PINNING METACARPAL FRACTURE;COMMENT:Procedure: PERCUTANEOUS PINNING METACARPAL FRACTURE; Surgeon: Ramiro Cespedes MD; Location: [facility]; Service: Orthopedics; Laterality: Left; Medical History [...] age to complete this topic Care Teams Box Car Checker Relationship Specialty Start Date End Date Jun Carter MD [address] [place] [address] [address] [place], [place] PCP - General Internal Medicine 11/04/17
--- OUTSIDE RECORDS SUMMARY | 2025-01-21 16:39 | XMS_ITS | Clinical Summary ---
Author Organization [facility] Address [address] [place] [address] Care Team Providers Care Aviation Engineer Name Role Phone Jun Carter MD Primary Care Provider [phone] Allergies No known active allergies Medications Medication [...] of Treatment Not on file Care Teams Aviation Engineer Relationship Specialty Start Date End Date Jun Carter MD [address] [place] [address] [address] [place] [address] PCP - General Internal Medicine 11/04/17
== END 2025-01-21 15:42 | disposition home or self-care (01) ==
LOC: HO.HUSH 15:04
PROVIDERS: PCP Internal Medicine; Visit Provider Nurse Practitioner Family
DX: Z13.9 Encounter for screening, unspecified (principal)

== ENCOUNTER → 2025-01-21 15:03 | Outpatient (BNVA) | payer MEDICARE, OTHER, SELFPAY | PROVIDERS: PCP Internal Medicine; Visit Provider Nurse Practitioner Family | DX: N40.1 Benign prostatic hyperplasia with lower urinary tract symptoms (principal); R35.0 Frequency of micturition; R35.1 Nocturia; R33.9 Retention of urine, unspecified | CPT/HCPCS: 51798; 81003; 99212 ==

== ENCOUNTER 2025-02-11 09:17 | Outpatient (REF) | payer MEDICARE, OTHER, SELFPAY ==
[2025-02-11 10:42] LABS: Anion Gap 12 (12-20); Blood Urea Nitrogen 15 mg/dL (9-16); Calcium 9.2 mg/dL (8.4-10.2); Carbon Dioxide 27 mmol/L (22-29); Chloride 108 mmol/L (96-108); Estimated Glomerular Filt Rate > 60; Potassium 4.0 mmol/L (3.3-5.1); Sodium 143 mmol/L (135-145)
== END 2025-02-11 09:18 | disposition home or self-care (01) ==
LOC: HO.LAB 09:17
PROVIDERS: PCP Internal Medicine; Visit Provider Internal Medicine Cardiovascular Disease
DX: I48.0 Paroxysmal atrial fibrillation (principal)
CPT/HCPCS: 36415; 80048

== ENCOUNTER 2025-03-20 09:06 | Outpatient (REF) | payer MEDICARE, OTHER, SELFPAY ==
[2025-03-20 10:22] LABS: Cholesterol 104 mg/dL (<200); HDL Cholesterol 35 mg/dL (>40); Triglycerides 39 mg/dL (<150)
== END 2025-03-20 09:07 | disposition home or self-care (01) ==
LOC: HO.LAB 09:06
PROVIDERS: PCP Internal Medicine; Visit Provider Internal Medicine Cardiovascular Disease
DX: E78.00 Pure hypercholesterolemia, unspecified (principal)
CPT/HCPCS: 36415; 80061

== ENCOUNTER 2025-04-21 15:32 | Outpatient (REF) | payer MEDICARE, OTHER, SELFPAY ==
--- NOTE | ~2025-04-21 | XR_ITS ---
EXAMINATION: XR CHEST CLINICAL INFORMATION: R05.9 - Cough, unspecified COMPARISON: X-ray 07/01/2019 TECHNIQUE: 2 views of the chest were obtained. FINDINGS: The cardiomediastinal silhouette is within normal limits. The lungs are well expanded. There is no focal consolidation, edema, or effusion. No pneumothorax. Thoracic spine spondylosis XR/XR chest 2V IMPRESSION: No acute pulmonary process Electronically signed by: Milan Lauren MD 04/22/2025 11:14 AM EST
--- OUTSIDE RECORDS SUMMARY | 2025-04-21 20:25 | XMS_ITS | Clinical Summary ---
Author Organization [facility] Address [address] [place] [address] Care Team Providers Care Coal Inspector Name Role Phone Jun Carter MD Primary Care Provider [phone] Surgical History Surgery Date Site/Laterality Comments TONSILLECTOMY PROCEDURE:TONSILLECTOMY FOOT SURGERY Right PROCEDURE:FOOT SURGERY FOOT SURGERY Left PROCEDURE:FOOT SURGERY OTHER SURGICAL HISTORY 11/05/2017 Left PROCEDURE:PERCUTANEOUS PINNING METACARPAL FRACTURE;COMMENT:Procedure: PERCUTANEOUS PINNING METACARPAL FRACTURE; Surgeon: Ramiro Cespedes MD; Location: [facility]; Service: Orthopedics; Laterality: Left; Medical History [...] on file Sexual Orientation Not on file Plan of Treatment Health Maintenance Due Date Last Done Comments DTaP,Tdap,and Td Vaccines (1 - Tdap) 1973 Pneumococcal Vaccine: 50+ Ye ars (1 of 1 - PCV) 2004 Zoster Vaccines (1 of 2) 2004 Depression Screening 05/06/2024 COVID-19 Vaccine (1 - 2024-2 6 season) 2025 Influenza Vaccine (#1) 2025 RSV [...] age to complete this topic Care Teams Coal Inspector Relationship Specialty Start Date End Date Jun Carter MD [address] [place] [address] Dr [address] [place] PCP - General Internal Medicine 11/04/17
--- OUTSIDE RECORDS SUMMARY | 2025-04-21 20:25 | XMS_ITS | Clinical Summary ---
Author Organization [facility] Prior to 10/03/[address] [place] [address] Care Team Providers Care Optician Apprentice Name Role Phone Jun Carter MD Primary Care Provider [phone] Allergies No known active allergies Medications Medication [...] of Treatment Not on file Care Teams Optician Apprentice Relationship Specialty Start Date End Date Jun Carter MD [address] [place] [address] [address] [place] [address] PCP - General Internal Medicine 11/04/17
== END 2025-04-21 15:33 | disposition home or self-care (01) ==
LOC: HO.XRAY 15:32
PROVIDERS: PCP Internal Medicine; Visit Provider Student in an Organized Health Care Education/Training Program
DX: R05.9 Cough, unspecified (principal)
CPT/HCPCS: 71046

== ENCOUNTER → 2025-04-21 15:35 | Outpatient (BNV) | payer MEDICARE, OTHER, SELFPAY | PROVIDERS: PCP Internal Medicine; Visit Provider Radiology Diagnostic Ultrasound | DX: R05.9 Cough, unspecified (principal) | CPT/HCPCS: 71046 ==